=== PATIENT | female | born 1950 | race American Indian/Alaskan Native ===

== ENCOUNTER 2017-05-21 09:06 | Inpatient (IN) | payer MEDICAID, MEDICARE ==
[2017-05-21 09:56] LABS: Basophils % (Auto) 0.3 % (0.0-1.8); Hematocrit 40.8 % (30.3-42.9); Hemoglobin 13.2 gm/dl (10.1-14.3); Mean Corpuscular HGB Conc 32 % (30-34); Mean Corpuscular Hemoglobin 26 pg (28-32); Mean Corpuscular Volume 80 fl (79-97); Platelet Count 322 K/mm3 (140-440); Red Blood Count 5.08 M/mm3 (3.65-5.03); Red Cell Distribution Width 14.3 % (13.2-15.2); White Blood Count 10.8 K/mm3 (4.5-11.0)
[2017-05-21 10:13] LABS: Albumin 3.5 g/dL (3.9-5); Albumin/Globulin Ratio 0.9 %; BUN/Creatinine Ratio 11.87; Bilirubin,Total 0.6 mg/dL (0.1-1.2); Calcium 9.1 mg/dL (8.4-10.2); Chloride 94.1 mmol/L (98-107); Total Protein 7.4 g/dL (6.3-8.2)
[2017-05-21 10:23] LABS: Potassium 2.6 mmol/L (3.6-5.0)
--- NOTE | 2017-05-21 10:30 | Emergency Department Report ---
HPI - General Chief Complaint: Weakness Time Seen by Provider: 05/21/17 09:58 - HPI HPI: This is a 66-year-old Afro-[place] female presents to the emergency department via EMS from home with complaint of a one-week history of generalized weakness. The patient doesn't history of CVA in 2006 and does require a walker to ambulate but says that for the past week she has been unable to do so secondary to this weakness. She has a decreased appetite. She denies any headache, vision change, slurred speech. She also has a past nuchal history of hypertension. She has home health care. 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 No recent travel or sick contacts at home. She is not taken anything for her symptoms prior to presentation. ED Past Medical Hx - Past Medical History Previous Medical History?: Yes Hx Hypertension: Yes Hx CVA: Yes - Surgical History Past Surgical History?: Yes Additional Surgical History: hystorectomy, tibuligation, tumor in stomach removed - Social History Smoking Status: Never Smoker Substance Use Type: None - Medications Home Medications: Home Medications Medication Instructions Recorded Confirmed Last Taken Type Aspirin [Aspirin BABY CHEW TAB] 81 mg PO QDAY 05/21/17 05/21/17 05/20/17 History Lisinopril [Zestril TAB] 2.5 mg PO QDAY 05/21/17 05/21/17 05/20/17 History [place]-3 Fatty Acids/Fish Oil [Fish 1 each PO DAILY 05/21/17 05/21/17 05/20/17 History Oil] Rosuvastatin Calcium [Crestor] 40 mg PO QHS 05/21/17 05/21/17 05/20/17 History amLODIPine [Norvasc] 10 mg PO DAILY 05/21/17 05/21/17 05/20/17 History ED Review of Systems ROS: Stated complaint: GENERAL WEAKNESS Other details as noted in HPI Comment: All other systems reviewed and negative Constitutional: weakness. denies: fever Eyes: denies: eye pain, eye discharge, vision change ENT: denies: ear pain, throat pain Respiratory: denies: cough, shortness of breath, wheezing Cardiovascular: denies: chest pain, palpitations Gastrointestinal: denies: abdominal pain, nausea, diarrhea Genitourinary: denies: urgency, dysuria, discharge Musculoskeletal: denies: back pain, joint swelling, arthralgia Skin: denies: rash, lesions Neurological: weakness. denies: headache, numbness Physical Exam - Physical Exam Vital Signs: Vital Signs 05/21/17 05/21/17 09:18 10:21 Temperature 97.7 F Pulse Rate 80 73 Respiratory 18 16 Rate Blood Pressure 119/77 Blood Pressure 115/73 [Left] O2 Sat by Pulse 99 100 Oximetry Physical Exam: GENERAL: The patient is well-developed well-nourished. HEENT: Normocephalic. Atraumatic. Extraocular motions are intact. Patient has moist mucous membranes. Pupils equal reactive to light bilaterally. No nystagmus. NECK: Supple. Trachea is midline. CHEST/LUNGS: Clear to auscultation. There is no respiratory distress noted. HEART/CARDIOVASCULAR: Regular. There is no tachycardia. There is no gallop rub or murmur. ABDOMEN: Abdomen is soft, nontender. Patient has normal bowel sounds. There is no abdominal distention. SKIN: Skin is warm and dry. NEURO: The patient is awake, alert, and oriented. The patient is cooperative. No sensory deficits. No facial asymmetry. No pronator drift. There is some mild generalized lower extremity weakness. The patient has normal speech. MUSCULOSKELETAL: There is no tenderness or deformity. There is no limitation range of motion. There is no evidence of acute injury. ED Course Vital Signs 05/21/17 05/21/17 09:18 10:21 Temperature 97.7 F Pulse Rate 80 73 Respiratory 18 16 Rate Blood Pressure 119/77 Blood Pressure 115/73 [Left] O2 Sat by Pulse 99 100 Oximetry ED Medical Decision Making - Lab Data Result diagrams: 05/21/17 09:39 05/21/17 09:39 - EKG Data -: EKG Interpreted by [facility] EKG shows normal: sinus rhythm, axis (borderline left axis deviation), intervals (prolonged QT and QTC intervals), QRS complexes, ST-T waves ( nonspecific ST-T waves) Rate: normal - EKG Data When compared to previous EKG there are: previous EKG unavailable Interpretation: other (sinus rhythm, prolonged QT and QTC intervals, borderline left axis deviation) - Radiology Data Radiology results: report reviewed CT of the head without contrast shows evidence of atrophy and microangiopathic ischemic disease. Chronic lacunar infarcts. No acute intracranial process noted. Bilateral renal ultrasound shows medical renal disease. Upper abdominal ultrasound does not show any acute process. - Medical Decision Making 66-year-old female presents with some generalized weakness to the lower extremities. Found to have very elevated transaminases and renal insufficiency/ failure without any previous history. CT of the head does not show any acute process including no bleed, shift, mass or ischemic changes. Ultrasound was done of the kidneys that also shows some medical renal disease but otherwise no acute process. Upper abdominal ultrasound shows a normal examination and no etiology for the transaminitis. Patient does have some generalized lower extremity weakness on examination which is abnormal for this patient. Therefore she will be admitted to the hospital for further evaluation and treatment has been accepted for admission by the hospitalist. - Differential Diagnosis TIA, CVA, hepatitis Critical Care Time: No Critical care attestation.: If time is entered above; I have spent that time in minutes in the direct care of this critically ill patient, excluding procedure time. ED Disposition Clinical Impression: Weakness, Transaminitis, Unable to walk Acute renal failure Qualifiers: Acute renal failure type: unspecified Qualified Code(s): N17.9 - Acute kidney failure, unspecified Disposition: OP ADMIT IP TO THIS HOSP Is pt being admited?: Yes Condition: Stable Time of Disposition: 13:07
[2017-05-21 10:31] LABS: Bacteria,Urine 1+ /HPF (Negative); Bilirubin,Urine NEG (Negative); Blood,Urine LG (Negative); Ketones,Urine NEG (Negative); Leukocyte Esterase,Urine NEG (Negative); Nitrite,Urine NEG (Negative); Urobilinogen,Urine < 2.0 mg/dL (<2.0)
--- NOTE | 2017-05-21 11:13 | Cat Scan Report ---
CT HEAD WITHOUT CONTRAST: HISTORY: Weakness. TECHNIQUE: Sequential CT images without contrast. FINDINGS: Images obtained show bilateral prominence of the sulci and ventricles. There are no abnormal intra- or extra-axial blood or fluid collections. There are no focal masses or evidence of mass effect. The glass white matter differentiation appears within normal limits. Regions of periventricular decreased attenuation are consistent with microangiopathic ischemic disease. Chronic lacunar infarcts are identified in both basal ganglia and right daron. The posterior fossa structures including the fourth ventricle, cerebellum, and brainstem appear normal otherwise. IMPRESSION: Evidence of atrophy and microangiopathic ischemic disease. Chronic lacunar infarcts. No acute intracranial process noted.
[2017-05-21] MEDS ORDERED: K-DUR PO ONE (11:14)
--- NOTE | 2017-05-21 11:25 | Admit Criteria Form ---
Admission Criteria Documentation: RENAL FAILURE, ACUTE Clinical Indications for Admission to Inpatient Care ( Place 'X' for any and all applicable criteria): Admission is indicated for ALL (if I & II) or III of the following [A](2)(3)(4)( 5)(6)(7): [ ]I. Acute renal failure as indicated by ANY ONE of the following: [ ]a) A 3-fold rise in serum creatinine from baseline [ ]b) Serum creatinine greater than 4 mg/dL (354 micromoles/L) with an acute rise greater than 0.5 mg/dL (44.2 micromoles/L) [ ]c) Reduction of more than 75% in estimated glomerular filtration rate from baseline [ ]d) Estimated glomerular filtration rate less than 35 mL/min/1.73m2 (0.59mL/sec/1.73m2)in a child up to 18 years of age [ ]e) Anuria indicated by ALL of the following: [ ]i) Adequate volume status [ ]ii) Cessation of urine output indicated by ANY ONE of the following: [ ]1) Urine output less than 0.3 mL/kg/hr for 24 hours [ ]2) Anuria (urine output less than 0.1 mL/kg/ hr) for 12 hours [X] II. Renal failure cannot be managed in an outpatient setting or observational care setting as indicating by ANY ONE of the following: [ ]a) Altered mental status that is severe or persistent [ ]b) Volume overload or Respiratory distress (eg, clinically significant pulmonary edema) that is severe or persistent [ ]c) Cardiac arrhythmias of immediate concern [ ]d) Hemodynamic instability []e) Clinically significant electrolyte abnormality that requires inpatient care (eg, hyperkalemia with severe ECG findings)[B] [ ]f) Clinically significant metabolic abnormality (eg, acidosis) that is severe or persistent [ ]g) Acute treatment of renal failure (eg, renal replacement therapy) not feasible or appropriate in observational care setting [ ]h) Clinical situation too unstable or uncertain (eg, inadequate urine output, ongoing decline in renal function, etiology unclear) [ ]i) Necessary support and caregiver ability to comply with outpatient treatment cannot be arranged in observation care timeframe (eg, within 24 hours) [X]j) Other significant finding or clinical condition judged not to be within scope of observation care [ ]III.General contraindications and/or Inappropriate clinical situations for Observational Care in patients with Acute Renal Failure, when ANY ONE of the following is required: [ ]a) Prediction of prolongation of LOS based on ANY ONE of the following may be considered as a contraindication for observational care 2, 3, 4, 5, 6, 7, 8 , 9, 10, 11 [ ]i) Age > 65 yrs. [ ]ii) Patient arriving by ambulance [ ]iii) Patient with high acuity [ ]iv) Patient requiring vital sign monitoring [ ]v) Patient on IV medication [ ]b) Systolic blood pressures 180mmHg 3,12 [ ]c) Patient with altered mental status including delirium and other alteration of consciousness, (3) [ ]d) Patient whose discharge disposition will be to a residential home or rehabilitation home should not be managed in Emergency Department Observation Unit. CMS rule requires 3 days hospital stay before such placement.3,13 [ ]e) Patient with failure to thrive due to broad array of etiologies 3, 16,17 [ ]f) Inability to ambulate 3,14 Extended stay beyond goal length of stay may be needed for(13) [ ]a) Continuing uremic complications [ ]b) Care for comorbidities [ ]c) acute renal failure [ ]d) Need for dialysis The original [employer] content created by [employer] has been revised. The portions of the content which have been revised are identified through the use of italic text or in bold, and [facility] has neither reviewed nor approved the modified material. All other unmodified content is copyright [employer]. Please see references footnoted in the original [facility] edition 2016 Admission Criteria Met: Yes
[2017-05-21] MEDS: KCL 10MEQ/100ML 10 MEQ/100 ML BAG IV SCH ×5 (12:04→22:55)
[2017-05-21] MEDS ORDERED: NACL 0.9% 1000 ML 1,000 ML ONE (12:22)
--- NOTE | 2017-05-21 12:41 | Ultrasound Report ---
RIGHT UPPER QUADRANT ULTRASOUND: HISTORY: Right upper quadrant pain, transaminitis. Technique: Transabdominal ultrasound imaging with Doppler interrogation. FINDINGS: The gallbladder is sonolucent with no evidence of stones, polyps or wall thickening. The common duct is normal in caliber. Images of the liver parenchyma, pancreas, and aorta are within normal limits. No perihepatic ascites. IMPRESSION: Unremarkable right upper quadrant ultrasound.
--- NOTE | 2017-05-21 12:42 | Ultrasound Report ---
ULTRASOUND RENAL BILATERAL HISTORY: Acute renal insufficiency. TECHNIQUE: transabdominal ultrasound with color Doppler interrogation. FINDINGS: The right kidney measures 9.9 x 3.6 x 5.4cm. Right renal cortex: 1.1cm. The left kidney measures 9.7 x 4.9 x 5.0cm. Left renal cortex: 1.4cm. The kidneys are normal size, contour and position. There is increased renal parenchymal echotexture bilaterally. Corticomedullary differentiation is preserved. No evidence for cystic disease, mass, nephrolithiasis, hydronephrosis or perinephric fluid. The views of the bladder and the region of the ureters appear normal. IMPRESSION: Renal parenchymal disease.
[2017-05-21] MEDS: HEPARIN SUB-Q SCH ×2 (14:00→21:28)
[2017-05-21] MEDS ORDERED: NON-FORMULARY (Lisinopril [Zestril Tab] 2.5 MG) PO SCH (17:45)
--- NOTE | 2017-05-21 17:55 | History and Physical Report ---
History of Present Illness Date of examination: 05/21/17 Date of admission: 05/21/17 13:07 Chief complaint: Generalized weakness, fatigue History of present illness: Patient is a 66-year-old lady who has a history of cerebrovascular accident in 2006 with hemiparesis and therefore ambulance with a walker. Patient was noted by family members to be progressively getting weaker. Unable to ambulate with her walker for the past 1 week. Denies any fever, chills or vomiting. No chest pain. Denies any orthopnea or paroxysmal nocturnal dyspnea. Symptoms progressively got worse. Patient was brought to the emergency department where CT scan of the brain was unremarkable for any acute event. Potassium was found to be 2.6 with a BUN of 38 and creatinine of 3.2. Liver enzymes where grossly elevated. Admission was therefore requested Past History Past Medical History: hypertension, hyperlipidemia, stroke Past Surgical History: No surgical history Social history: lives with family. denies: smoking, alcohol abuse, prescription drug abuse Family history: no significant family history Medications and Allergies Allergies Allergy/AdvReac Type Severity Reaction Status Date / Time No Known Allergies Allergy Unverified 05/15/14 08:42 Home Medications Medication Instructions Recorded Confirmed Last Taken Type Aspirin [Aspirin BABY CHEW TAB] 81 mg PO QDAY 05/21/17 05/21/17 05/20/17 History Lisinopril [Zestril TAB] 2.5 mg PO QDAY 05/21/17 05/21/17 05/20/17 History [place]-3 Fatty Acids/Fish Oil [Fish 1 each PO DAILY 05/21/17 05/21/17 05/20/17 History Oil] Rosuvastatin Calcium [Crestor] 40 mg PO QHS 05/21/17 05/21/17 05/20/17 History amLODIPine [Norvasc] 10 mg PO DAILY 05/21/17 05/21/17 05/20/17 History Active Meds: Active Medications Amlodipine Besylate (Norvasc) 10 mg PO DAILY [facility] Aspirin (Baby Aspirin) 81 mg PO QDAY [facility] Fish Oil (Fish Oil) 1,000 mg PO DAILY [facility] Heparin Sodium (Porcine) (Heparin) 5,000 unit SUB-Q Q8HR [facility] Dextrose/Sodium Chloride (D5/0.45ns) 1,000 mls @ 125 mls/hr IV DIRECT [facility]INA Potassium Chloride (Kcl 10meq/100ml) 10 meq in 100 mls @ 100 mls/hr IV Q1H [facility] Stop: 05/21/17 20:59 Lisinopril (Zestril) 2.5 mg PO QDAY [facility] Review of systems Constitutional: Fatigue and staffed . Head: NC/ AT Eyes: Denies any visual impairments. No discharge from the eyes Nose: Denies any rhinorrhea or epistaxis Throats: Denies any post nasal drainage. Ears: Denies any hearing deficits Cardiovascular system: Denies any chest pain, shortness of breath, orthopnea, paroxysmal nocturnal dyspnea, or palpitation. Respiratory system: Denies any cough, difficulty breathing, wheezing, pleuritic chest pain, Gastrointestinal system: Denies any abdominal pain, nausea vomiting, hematemesis or melena. Neurological system: Denies any headache, slurred speech, facial droop, lateralizing weakness Genitalia system: Denies any dysuria, urinary frequency or urgency, urethral discharge Skin: No rashes, hyperpigmented spots. Hematological: Denies any cervical tenderness hemorrhages or petechia. Immunological: Denies any multiple septic spots, Lymphatic: Denies any generalized lymphadenopathy. Endocrine: Denies any polyuria, polydipsia, polyphagia. No heat or cold intolerance. Musculoskeletal system: Psych: No visual, tactile, auditory or hallucination Review of Systems Constitutional: no weight gain, no fever, no chills, no sweats Ears, nose, mouth and throat: no ear pain, no ear discharge, no tinnitis, no decreased hearing Cardiovascular: no chest pain, no orthopnea, no palpitations, no rapid/ irregular heart beat Respiratory: no cough, no cough with sputum, no wheezing Gastrointestinal: nausea, vomiting, diarrhea Musculoskeletal: muscle weakness Integumentary: no rash, no pruritis, no redness, no wounds, no jaundice Neurological: no migraines, no tic, no convulsions, no aphasia, no change in speech, no change in mentation, no confusion, no memory loss Psychiatric: change in sleep habits, sleep disturbances, no anxiety Endocrine: no cold intolerance, no heat intolerance, no polyphagia, no excessive thirst, no polydipsia Hematologic/Lymphatic: easy bruising, easy bleeding Allergic/Immunologic: urticaria Exam - Constitutional Vitals: Temp Pulse Resp BP Pulse Ox 97.7 F 74 18 111/60 99 05/21/17 09:18 05/21/17 14:42 05/21/17 14:42 05/21/17 14:42 05/21/17 14:42 General appearance: Present: no acute distress, well-nourished - EENT Eyes: Present: PERRL ENT: hearing intact - Neck Neck: Present: supple, normal ROM - Respiratory Respiratory effort: normal Respiratory: bilateral: CTA - Cardiovascular Heart Sounds: Present: S1 & S2. Absent: rub, click - Extremities Extremities: pulses symmetrical, No edema Peripheral Pulses: within normal limits - Abdominal General gastrointestinal: Present: soft, non-tender Female genitourinary: Present: normal - Integumentary Integumentary: Present: clear, dry - Musculoskeletal Musculoskeletal: gait normal, strength equal bilaterally - Psychiatric Psychiatric: appropriate mood/affect, intact judgment & insight - Neurologic Neurologic: CNII-XII intact, moves all extremities Results - Labs CBC & Chem 7: 05/25/17 04:00 05/25/17 04:00 Assessment and Plan - Acute renal failure, - hypokalemia, - transaminasemia, - hypomagnesemia. Plan IV Hydration for renal failure. Renal US, Nephrology consult Replete potassium and magnesium cautioulsy Physical therapy if additional treatment. DVT Prophylaxis with Lovenox, GI with pepcid Spent 32 mins during this admission process
[2017-05-21] MEDS: ZESTRIL PO SCH (20:05)
[2017-05-21] MEDS: NORVASC PO SCH (20:07)
[2017-05-21] MEDS: D5/0.45NS 1,000 ML IV SCH (20:09)
[2017-05-21] MEDS ORDERED: NON-FORMULARY (Rosuvastatin Calcium [Crestor] 40 MG) PO SCH (22:00)
[2017-05-22] MEDS: D5/0.45NS 1,000 ML IV SCH (05:10)
[2017-05-22 05:39] LABS: Basophils % (Auto) 0.3 % (0.0-1.8); Eosinophils % (Auto) 1.6 % (0.0-4.3); Hematocrit 36.4 % (30.3-42.9); Hemoglobin 11.8 gm/dl (10.1-14.3); Mean Corpuscular HGB Conc 33 % (30-34); Mean Corpuscular Hemoglobin 26 pg (28-32); Mean Corpuscular Volume 80 fl (79-97); Platelet Count 273 K/mm3 (140-440); Red Blood Count 4.54 M/mm3 (3.65-5.03); Red Cell Distribution Width 14.3 % (13.2-15.2); White Blood Count 7.6 K/mm3 (4.5-11.0)
[2017-05-22 06:08] LABS: Albumin 2.8 g/dL (3.9-5); Albumin/Globulin Ratio 0.8 %; BUN/Creatinine Ratio 11.42; Bilirubin,Total 0.3 mg/dL (0.1-1.2); Calcium 8.3 mg/dL (8.4-10.2); Chloride 102.4 mmol/L (98-107); Total Protein 6.2 g/dL (6.3-8.2)
[2017-05-22 06:48] LABS: Potassium 3.6 mmol/L (3.6-5.0)
[2017-05-22] MEDS: NORVASC PO SCH (10:16)
[2017-05-22] MEDS: FISH OIL PO SCH (10:16)
[2017-05-22] MEDS: BABY ASPIRIN PO SCH (10:16)
[2017-05-22] MEDS: ZESTRIL PO SCH (10:16)
--- NOTE | 2017-05-22 15:08 | Progress Note ---
Assessment and Plan Assessment and plan: Patient is a 66-year-old woman with a history of hypertension, dyslipidemia and CVA with hemiparesis 2006; therefore, ambulates with a walker who presented with weakness and inability to ambulate. She was found have a creatinine at 3.2 and severe hypokalemia. There is no baseline in this computer system to compare with subtle know if this is chronic kidney disease acute renal failure, however her creatinine has increased so this is acute renal failure. Renal ultrasound reported as renal parenchymal disease. -Acute renal failure, suspect vasomotor nephropathy: Treat with IV fluids, await nephrology evaluation -Severe hypokalemia, replaced and resolved: BMP a.m. -Hypomagnesemia: Replaced, recheck in a.m. -Elevated troponin: Consulted cardiology, ordered TTE -Ambulation difficulties: Consult PT -DVT prophylaxis: Change subcutaneous Lovenox to heparin -Moderate malnutrition: Consult dietary -Transaminitis, has low blood pressure: repeat and consulted GI History Interval history: Patient seen and examined. Follow up on current diagnosis/weakness. Overnight uneventful. No cp, sob, n/v or severe headaches. Imaging, old records, testing, labs, nursing notes reviewed. Hospitalist Physical - Physical exam Narrative exam: GEN: WDWN, NAD, AWAKE, ALERT, ORIENTATED x 3 HEENT: NCAT, PERRL, EOMI, OP CLEAR NECK: SUPPLE, NO THYROMEGALY, NO JVD, NO LAD CVS: RRR, NORMAL S1S2 LUNGS/CHEST: CTA B, NORMAL CHEST EXPANSION B, GOOD AIR ENTRY B ABD: SOFT, NTND, GBS, NO REBOUND OR GUARDING EXT/SKIN: NO SIGNIFICANT EDEMA OR RASH MSK: FROM X 4 EXTREMITIES NEURO: CN 2-12 GROSSLY INTACT, NO new FOCAL DEFICITS PSY: CALM - Constitutional Vitals: Temp Pulse Resp BP Pulse Ox 97.6 F 76 18 80/50 99 05/22/17 12:00 05/22/17 12:00 05/22/17 12:00 05/22/17 12:00 05/22/17 12:00 General appearance: Present: no acute distress, well-nourished Results - Labs CBC & Chem 7: 05/22/17 05:13 05/22/17 05:13 Labs: Laboratory Last Values WBC 7.6 K/mm3 (4.5-11.0) 05/22/17 05:13 RBC 4.54 M/mm3 (3.65-5.03) 05/22/17 05:13 Hgb 11.8 gm/dl (10.1-14.3) 05/22/17 05:13 Hct 36.4 % (30.3-42.9) 05/22/17 05:13 MCV 80 fl (79-97) 05/22/17 05:13 MCH 26 pg (28-32) L 05/22/17 05:13 MCHC 33 % (30-34) 05/22/17 05:13 RDW 14.3 % (13.2-15.2) 05/22/17 05:13 Plt Count 273 K/mm3 (140-440) 05/22/17 05:13 Lymph % (Auto) 18.8 % (13.4-35.0) 05/22/17 05:13 [place] % (Auto) 11.0 % (0.0-7.3) H 05/22/17 05:13 Eos % (Auto) 1.6 % (0.0-4.3) 05/22/17 05:13 Baso % (Auto) 0.3 % (0.0-1.8) 05/22/17 05:13 Lymph # 1.4 K/mm3 (1.2-5.4) 05/22/17 05:13 [place] # 0.8 K/mm3 (0.0-0.8) 05/22/17 05:13 Eos # 0.1 K/mm3 (0.0-0.4) 05/22/17 05:13 Baso # 0.0 K/mm3 (0.0-0.1) 05/22/17 05:13 Seg Neutrophils % 68.3 % (40.0-70.0) 05/22/17 05:13 Seg Neutrophils # 5.2 K/mm3 (1.8-7.7) 05/22/17 05:13 Sodium 140 mmol/L (137-145) 05/22/17 05:13 Potassium 3.6 mmol/L (3.6-5.0) D 05/22/17 05:13 Chloride 102.4 mmol/L (98-107) 05/22/17 05:13 Carbon Dioxide 23 mmol/L (22-30) 05/22/17 05:13 Anion Gap 18 mmol/L 05/22/17 05:13 BUN 40 mg/dL (7-17) H 05/22/17 05:13 Creatinine 3.5 mg/dL (0.7-1.2) H 05/22/17 05:13 Estimated GFR 16 ml/min 05/22/17 05:13 BUN/Creatinine Ratio 11.42 % 05/22/17 05:13 Glucose 160 mg/dL (65-100) H 05/22/17 05:13 Calcium 8.3 mg/dL (8.4-10.2) L 05/22/17 05:13 Total Bilirubin 0.30 mg/dL (0.1-1.2) 05/22/17 05:13 AST 343 units/L (5-40) H 05/22/17 05:13 ALT 220 units/L (7-56) H 05/22/17 05:13 Alkaline Phosphatase 74 units/L (35-129) 05/22/17 05:13 Troponin T 0.169 ng/mL (0.00-0.029) H* 05/21/17 10:09 Total Protein 6.2 g/dL (6.3-8.2) L 05/22/17 05:13 Albumin 2.8 g/dL (3.9-5) L 05/22/17 05:13 Albumin/Globulin Ratio 0.8 % 05/22/17 05:13 Triglycerides 119 mg/dL (2-149) 05/21/17 10:09 Cholesterol 102 mg/dL (50-199) 05/21/17 10:09 LDL Cholesterol Direct 46 mg/dL (50-130) L 05/21/17 10:09 HDL Cholesterol 33 mg/dL (40-59) L 05/21/17 10:09 Cholesterol/HDL Ratio 3.09 % 05/21/17 10:09 TSH 3.080 mlU/mL (0.270-4.200) 05/21/17 10:09 Urine Color Yellow (Yellow) 05/21/17 10:15 Urine Turbidity Slightly-cloudy (Clear) 05/21/17 10:15 Urine pH 6.0 (5.0-7.0) 05/21/17 10:15 Ur Specific [place] 1.004 (1.003-1.030) 05/21/17 10:15 Urine Protein 30 mg/dl mg/dL (Negative) 05/21/17 10:15 Urine Glucose (UA) Neg mg/dL (Negative) 05/21/17 10:15 Urine Ketones Neg mg/dL (Negative) 05/21/17 10:15 Urine Blood Lg (Negative) 05/21/17 10:15 Urine Nitrite Neg (Negative) 05/21/17 10:15 Urine Bilirubin Neg (Negative) 05/21/17 10:15 Urine Urobilinogen < 2.0 mg/dL (<2.0) 05/21/17 10:15 Ur Leukocyte Esterase Neg (Negative) 05/21/17 10:15 Urine WBC (Auto) 2.0 /HPF (0.0-6.0) 05/21/17 10:15 Urine RBC (Auto) 1.0 /HPF (0.0-6.0) 05/21/17 10:15 Urine Bacteria (Auto) 1+ /HPF (Negative) 05/21/17 10:15 Plasma/Serum Alcohol < 0.01 gm% (0-0.07) 05/21/17 10:09
--- NOTE | 2017-05-22 15:10 | Consultation ---
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 Patient usually uses walker to ambulate, however for the past week she has been unable to do so secondary to her worsening weakness. Patient reports decreased appetite, decreased po and fluid intake lately. In ER patient was found to have significantly elevated LFTs with with AST 655 ALT 298 and also abnormal kidney function with BUN/Cr at 38/3.2mg/dl. Renal consult is requested for management of acute on possible CKD , as renal US showed echogenic kidneys bilaterally. Otherwise no acute hydro/ mass/stones seen. Pt is unaware of any underlying kidney disease in the past, denies fever, chills, nausea, vomiting, diarrhea, abd pain, dysuria, SOB, CP , papitations. Denies recent NSAIDs use or IV contrast exposure. 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 denies: smoking, alcohol abuse, prescription drug abuse Family history: hypertension (cousins), other (mother - heart attack) Medications and Allergies Allergies Allergy/AdvReac Type Severity Reaction Status Date / Time No Known Allergies Allergy Unverified 05/15/14 08:42 Home Medications Medication Instructions Recorded Confirmed Last Taken Type Aspirin [Aspirin BABY CHEW TAB] 81 mg PO QDAY 05/21/17 05/21/17 05/20/17 History Lisinopril [Zestril TAB] 2.5 mg PO QDAY 05/21/17 05/21/17 05/20/17 History [place]-3 Fatty Acids/Fish Oil [Fish 1 each PO DAILY 05/21/17 05/21/17 05/20/17 History Oil] Rosuvastatin Calcium [Crestor] 40 mg PO QHS 05/21/17 05/21/17 05/20/17 History amLODIPine [Norvasc] 10 mg PO DAILY 08/01/0205/21/17 05/20/17 History Active Meds: Active Medications Amlodipine Besylate (Norvasc) 10 mg PO DAILY [facility] Last Admin: 05/22/17 10:16 Dose: 10 mg Aspirin (Baby Aspirin) 81 mg PO QDAY [facility] Last Admin: 05/22/17 10:16 Dose: 81 mg Fish Oil (Fish Oil) 1,000 mg PO DAILY [facility] Last Admin: 05/22/17 10:16 Dose: 1,000 mg Heparin Sodium (Porcine) (Heparin) 5,000 unit SUB-Q Q12HR [facility] Dextrose/Sodium Chloride (D5/0.45ns) 1,000 mls @ 125 mls/hr IV DIRECT [facility] Last Admin: 05/22/17 05:10 Dose: 125 mls/hr Lisinopril (Zestril) 2.5 mg PO QDAY [facility] Last Admin: 05/22/17 10:16 Dose: 2.5 mg Review of Systems All systems: negative Constitutional: anorexia, fatigue, weakness, malaise, poor appetite Cardiovascular: dyspnea on exertion Exam - Vital Signs Vital signs: Vital Signs Temp Pulse Resp BP Pulse Ox 97.7 F 80 18 119/77 99 05/21/17 09:18 05/21/17 09:18 05/21/17 09:18 05/21/17 09:18 05/21/17 09:18 - General Appearance General appearance: appears stated age, fatigue, frail EENT: ATNC, PERRL, mucous membranes moist Neck: Present: neck supple Respiratory: Clear to Ascultation Heart: regular, S1S2 Gastrointestinal: Present: normoactive bowel sounds Integumentary: no rash, other (no edema ) Neurologic: no focal deficit, alert and oriented x3, CN 3-12 intact, hemiplegic , facial droop Psychiatric: mood/affect appropriate, cooperative Results - Lab Results 05/22/17 05:13 05/22/17 05:13 Most recent lab results Calcium 8.3 mg/dL (8.4-10.2) L 05/22/17 05:13 Laboratory Tests 05/21/17 05/21/17 05/21/17 09:39 10:09 10:09 Calcium 9.1 Total Bilirubin 0.60 AST 655 H ALT 298 H Alkaline Phosphatase 90 Troponin T 0.169 H* Total Protein 7.4 Albumin 3.5 L Albumin/Globulin Ratio 0.9 Triglycerides 119 Cholesterol 102 LDL Cholesterol Direct 46 L HDL Cholesterol 33 L Cholesterol/HDL Ratio 3.09 TSH 3.080 Urine Color Urine Turbidity Urine pH Ur Specific [place] Urine Protein Urine Glucose (UA) Urine Ketones Urine Blood Urine Nitrite Urine Bilirubin Urine Urobilinogen Ur Leukocyte Esterase Urine WBC (Auto) Urine RBC (Auto) Urine Bacteria (Auto) Plasma/Serum Alcohol 05/21/17 05/21/17 05/22/17 10:09 10:15 05:13 Calcium 8.3 L Total Bilirubin 0.30 AST 343 H ALT 220 H Alkaline Phosphatase 74 Troponin T Total Protein 6.2 L Albumin 2.8 L Albumin/Globulin Ratio 0.8 Triglycerides Cholesterol LDL Cholesterol Direct HDL Cholesterol Cholesterol/HDL Ratio TSH Urine Color Yellow Urine Turbidity Slightly-cloudy Urine pH 6.0 Ur Specific [place] 1.004 Urine Protein 30 mg/dl Urine Glucose (UA) Neg Urine Ketones Neg Urine Blood Lg Urine Nitrite Neg Urine Bilirubin Neg Urine Urobilinogen < 2.0 Ur Leukocyte Esterase Neg Urine WBC (Auto) 2.0 Urine RBC (Auto) 1.0 Urine Bacteria (Auto) 1+ Plasma/Serum Alcohol < 0.01 Assessment and Plan Assessment: 1. Acute kidney injury likely due to pre-renal azotemia superimposed on CKD. Suspect hypertensive nephrosclerosis as underlying cause of CKD given long standing HTN. Renal US showed b/l echogenic kidneys 2. Failure to thrive, with significantly elevated LFTs to rule out liver malignancy/metastatic disease 3. Hypertension 4. hypokalemia due to decreased po intake Plan/recommendations : 1. given borderline low BP will change IVF to D5NS at 125ml/hr. stop lisinopril. 2. will check UA, urine lytes/Cr to assess FeNA, check urine protein/Cr ratio 3. check PTH, phos 4. K supplementation w/ Kdur 5. Supportive care for TINO, avoid nephrotoxins, NSAIDs, IV contrast. will monitor lytes and renal parameters closely and make further recommendations.
[2017-05-22] MEDS ORDERED: LOVENOX SUB-Q SCH ×2 (22:00)
[2017-05-23] MEDS: D5NS 1,000 ML IV SCH (05:59)
[2017-05-23 06:35] LABS: Bacteria,Urine 3+ /HPF (Negative); Bilirubin,Urine NEG (Negative); Blood,Urine LG (Negative); Ketones,Urine NEG (Negative); Leukocyte Esterase,Urine LG (Negative); Mucus,Urine FEW /HPF; Nitrite,Urine NEG (Negative); Urobilinogen,Urine < 2.0 mg/dL (<2.0)
[2017-05-23 07:39] LABS: Basophils % (Auto) 0.6 % (0.0-1.8); Eosinophils % (Auto) 2.6 % (0.0-4.3); Hematocrit 39.5 % (30.3-42.9); Hemoglobin 12.9 gm/dl (10.1-14.3); Mean Corpuscular HGB Conc 33 % (30-34); Mean Corpuscular Hemoglobin 26 pg (28-32); Mean Corpuscular Volume 80 fl (79-97); Platelet Count 299 K/mm3 (140-440); Red Blood Count 4.92 M/mm3 (3.65-5.03); Red Cell Distribution Width 14.3 % (13.2-15.2); White Blood Count 10.4 K/mm3 (4.5-11.0)
[2017-05-23 07:51] LABS: Albumin/Globulin Ratio 0.9 %; BUN/Creatinine Ratio 9.47; Bilirubin,Total 0.3 mg/dL (0.1-1.2); Calcium 8.5 mg/dL (8.4-10.2); Chloride 105.2 mmol/L (98-107); Magnesium 2.4 mg/dL (1.7-2.3); Potassium 3.3 mmol/L (3.6-5.0); Total Protein 6.5 g/dL (6.3-8.2)
[2017-05-23] MEDS ORDERED: K-DUR PO ONE (09:02)
--- NOTE | 2017-05-23 09:37 | Consultation ---
History of Present Illness Consult date: 05/23/17 Requesting physician: RAMANDEEP GILLILAND Consult reason: abnormal cardiac enzymes History of present illness: Patient is a 66-year-old with no past medical history was admitted to the hospital with progressive weakness and fatigue. Patient was noted to have borderline elevated cardiac enzymes and hence cardiology was consulted. The patient denies any prior cardiac history. She has a history of CVA with residual hemiparesis. Patient complaining of extreme fatigue and tiredness. In the emergency room patient was noted to be hypokalemic and potassium is being replaced. No current chest pain or shortness of breath. Patient has poor insight into her medical problems. 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 denies: smoking, alcohol abuse, prescription drug abuse Family history: CAD, hypertension (cousins), other (mother - heart attack) Medications and Allergies Allergies Allergy/AdvReac Type Severity Reaction Status Date / Time No Known Allergies Allergy Unverified 05/15/14 08:42 Home Medications Medication Instructions Recorded Confirmed Last Taken Type Aspirin [Aspirin BABY CHEW TAB] 81 mg PO QDAY 05/21/17 05/21/17 05/20/17 History Lisinopril [Zestril TAB] 2.5 mg PO QDAY 05/21/17 05/21/17 05/20/17 History [place]-3 Fatty Acids/Fish Oil [Fish 1 each PO DAILY 05/21/17 05/21/17 05/20/17 History Oil] Rosuvastatin Calcium [Crestor] 40 mg PO QHS 05/21/17 05/21/17 05/20/17 History amLODIPine [Norvasc] 10 mg PO DAILY 05/21/17 05/21/17 05/20/17 History Active Meds: Active Medications Amlodipine Besylate (Norvasc) 10 mg PO DAILY [facility] Last Admin: 05/22/17 10:16 Dose: 10 mg Aspirin (Baby Aspirin) 81 mg PO QDAY [facility] Last Admin: 05/22/17 10:16 Dose: 81 mg Fish Oil (Fish Oil) 1,000 mg PO DAILY [facility] Last Admin: 05/22/17 10:16 Dose: 1,000 mg Heparin Sodium (Porcine) (Heparin) 5,000 unit SUB-Q Q12HR [facility] Dextrose/Sodium Chloride (D5ns) 1,000 mls @ 125 mls/hr IV DIRECT [facility] Last Admin: 05/23/17 05:59 Dose: 125 mls/hr Review of Systems All systems: negative (as mentioned in the H&P) Physical Examination Vital Signs Temp Pulse Resp BP Pulse Ox 97.7 F 80 18 119/77 99 05/21/17 09:18 05/21/17 09:18 05/21/17 09:18 05/21/17 09:18 05/21/17 09:18 Narrative exam: GEN: NAD appears frail HEENT: Carotids 2+ NECK: SUPPLE, CVS: RRR, NORMAL S1S2 LUNGS/CHEST: CTA ABD: SOFT, MSK: No significant edema NEURO: Hemiparesis PSY: CALM Results 05/23/17 07:05 05/23/17 07:05 Cardiac Enzymes 05/23/17 Range/Units 07:05 AST 244 H (5-40) units/L CBC 05/23/17 Range/Units 07:05 WBC 10.4 (4.5-11.0) K/mm3 RBC 4.92 (3.65-5.03) M/mm3 Hgb 12.9 (10.1-14.3) gm/dl Hct 39.5 (30.3-42.9) % Plt Count 299 (140-440) K/mm3 Lymph # 1.5 (1.2-5.4) K/mm3 [place] # 1.1 H (0.0-0.8) K/mm3 Eos # 0.3 (0.0-0.4) K/mm3 Baso # 0.1 (0.0-0.1) K/mm3 Comprehensive Metabolic Panel 05/23/17 Range/Units 07:05 Sodium 143 (137-145) mmol/L Potassium 3.3 L (3.6-5.0) mmol/L Chloride 105.2 (98-107) mmol/L Carbon Dioxide 24 (22-30) mmol/L BUN 36 H (7-17) mg/dL Creatinine 3.8 H (0.7-1.2) mg/dL Glucose 138 H (65-100) mg/dL Calcium 8.5 (8.4-10.2) mg/dL AST 244 H (5-40) units/L ALT 210 H (7-56) units/L Alkaline Phosphatase 93 (35-129) units/L Total Protein 6.5 (6.3-8.2) g/dL Albumin 3.0 L (3.9-5) g/dL EKG interpretations - Telemetry EKG Rhythm: Sinus Rhythm (nonspecific ST-T wave changes) Assessment and Plan Assessment: 1. Borderline elevated cardiac enzymes with no active symptoms or EKG changes suggestive for an acute OR. Borderline troponin elevation likely the result of renal failure 2. Acute kidney injury nephrology has been consulted 2. Failure to thrive, with significantly elevated LFTs to rule out liver malignancy/metastatic disease 3. Hypertension 4. hypokalemia due to decreased po intake Plan/recommendations : 1. 2-D echo has already been ordered 2. Aggressive IV hydration and monitor renal function 3. Toradol blood pressure medicines from 4. Potassium replacement as is being done 5. All nephrotoxic agents have been held 6. His clinical situation improves may consider stress test prior to DC
--- NOTE | 2017-05-23 10:56 | Progress Note ---
Assessment and Plan - Patient Problems (1) Acute kidney injury superimposed on CKD Current Visit: Yes Status: Acute Plan to address problem: Baseline kidney function unknown. Continue gentle volume repletion and follow- up electrolytes and renal function. (2) Hypertensive chronic kidney disease with stage 1 through stage 4 chronic kidney disease, or unspecified chronic kidney disease Current Visit: Yes Status: Acute Plan to address problem: Follow-up blood pressure on current medications (3) Transaminitis Current Visit: Yes Status: Acute Plan to address problem: Follow-up liver function tests (4) History of cerebrovascular accident Current Visit: Yes Status: Acute Plan to address problem: Continue medications (5) Hypokalemia Current Visit: Yes Status: Acute Plan to address problem: Supplement potassium and follow-up level Subjective Date of service: 05/23/17 Principal diagnosis: acute kidney injury Interval history: Patient seen lying in bed. She has no complaints. She denies pain, shortness of breath, nausea or vomiting Objective - Exam Narrative Exam: L elderly -Japanese female lying in bed in no acute distress HEENT [normocephalic atraumatic, pupils equal reactive to light, pink, clear oropharynx] Neck [supple, no thyromegaly no jugular venous distention] CVS [S1-S2 regular rate rhythm without murmur, rub or gallop] Chest [clear to auscultation] Abdomen [soft nondistended nontender no organomegaly no bruit bowel sounds present] Extremities [no edema no cyanosis or clubbing] Genitourinary [deferred] Neuro [awake, alert oriented x3 no gross deficit] - Vital Signs Vital signs: Vital Signs - 12hr 05/23/17 05/23/17 05/23/17 00:12 05:50 07:10 Temperature 97.8 F 98.9 F 98.4 F Pulse Rate 74 64 65 Respiratory 20 18 18 Rate Blood Pressure 84/46 100/64 101/58 O2 Sat by Pulse 97 99 97 Oximetry - Lab 05/23/17 07:05 05/23/17 07:05 Most recent lab results Calcium 8.5 mg/dL (8.4-10.2) 05/23/17 07:05 Phosphorus 3.20 mg/dL (2.5-4.5) 05/23/17 07:05 Magnesium 2.40 mg/dL (1.7-2.3) H 05/23/17 07:05
--- NOTE | 2017-05-23 13:14 | Progress Note ---
Assessment and Plan Assessment and plan: Patient is a 66-year-old woman with a history of hypertension, dyslipidemia and CVA with hemiparesis 2006; therefore, ambulates with a walker who presented with weakness and inability to ambulate. She was found have a creatinine at 3.2 and severe hypokalemia. There is no renal function baseline in this computer system to compare don't know if this is chronic kidney disease or acute renal failure, however her creatinine has increased so this is acute renal failure. Renal ultrasound reported as renal parenchymal disease. -Acute renal failure, suspect vasomotor nephropathy: Treat with IV fluids, await nephrology evaluation -Severe hypokalemia, replaced and resolved: BMP a.m. -Hypomagnesemia: Replaced, recheck in a.m. -Elevated troponin: Consulted cardiology, ordered TTE -Ambulation difficulties: Consult PT -DVT prophylaxis: Change subcutaneous Lovenox to heparin -Moderate malnutrition: Consult dietary -Transaminitis, has low blood pressure: repeat and consulted GI 05/23/17: d/w daughter over the phone in patient's room and answered all her questions. Cr still increasing, lapping machine tender to see, hypokalemia, replaced History Interval history: Patient seen and examined. Follow up on current diagnosis/weakness. Overnight uneventful. No cp, sob, n/v or severe headaches. Imaging, old records, testing, labs, nursing notes reviewed. Hospitalist Physical - Physical exam Narrative exam: GEN: WDWN, NAD, AWAKE, ALERT, ORIENTATED x 3 HEENT: NCAT, PERRL, EOMI, OP CLEAR NECK: SUPPLE, NO THYROMEGALY, NO JVD, NO LAD CVS: RRR, NORMAL S1S2 LUNGS/CHEST: CTA B, NORMAL CHEST EXPANSION B, GOOD AIR ENTRY B ABD: SOFT, NTND, GBS, NO REBOUND OR GUARDING EXT/SKIN: NO SIGNIFICANT EDEMA OR RASH MSK: FROM X 4 EXTREMITIES NEURO: CN 2-12 GROSSLY INTACT, NO new FOCAL DEFICITS PSY: CALM - Constitutional Vitals: Temp Pulse Resp BP Pulse Ox 97.5 F L 68 20 119/64 99 05/23/17 11:02 05/23/17 11:02 05/23/17 11:02 05/23/17 11:02 05/23/17 11:02 General appearance: Present: no acute distress, well-nourished Results - Labs CBC & Chem 7: 05/23/17 07:05 05/23/17 07:05 Labs: Laboratory Last Values WBC 10.4 K/mm3 (4.5-11.0) 05/23/17 07:05 RBC 4.92 M/mm3 (3.65-5.03) 05/23/17 07:05 Hgb 12.9 gm/dl (10.1-14.3) 05/23/17 07:05 Hct 39.5 % (30.3-42.9) 05/23/17 07:05 MCV 80 fl (79-97) 05/23/17 07:05 MCH 26 pg (28-32) L 05/23/17 07:05 MCHC 33 % (30-34) 05/23/17 07:05 RDW 14.3 % (13.2-15.2) 05/23/17 07:05 Plt Count 299 K/mm3 (140-440) 05/23/17 07:05 Lymph % (Auto) 14.6 % (13.4-35.0) 05/23/17 07:05 [place] % (Auto) 10.8 % (0.0-7.3) H 05/23/17 07:05 Eos % (Auto) 2.6 % (0.0-4.3) 05/23/17 07:05 Baso % (Auto) 0.6 % (0.0-1.8) 05/23/17 07:05 Lymph # 1.5 K/mm3 (1.2-5.4) 05/23/17 07:05 [place] # 1.1 K/mm3 (0.0-0.8) H 05/23/17 07:05 Eos # 0.3 K/mm3 (0.0-0.4) 05/23/17 07:05 Baso # 0.1 K/mm3 (0.0-0.1) 05/23/17 07:05 Seg Neutrophils % 71.4 % (40.0-70.0) H 05/23/17 07:05 Seg Neutrophils # 7.4 K/mm3 (1.8-7.7) 05/23/17 07:05 Sodium 143 mmol/L (137-145) 05/23/17 07:05 Potassium 3.3 mmol/L (3.6-5.0) L 05/23/17 07:05 Chloride 105.2 mmol/L (98-107) 05/23/17 07:05 Carbon Dioxide 24 mmol/L (22-30) 05/23/17 07:05 Anion Gap 17 mmol/L 05/23/17 07:05 BUN 36 mg/dL (7-17) H 05/23/17 07:05 Creatinine 3.8 mg/dL (0.7-1.2) H 05/23/17 07:05 Estimated GFR 14 ml/min 05/23/17 07:05 BUN/Creatinine Ratio 9.47 % 05/23/17 07:05 Glucose 138 mg/dL (65-100) H 05/23/17 07:05 Calcium 8.5 mg/dL (8.4-10.2) 05/23/17 07:05 Phosphorus 3.20 mg/dL (2.5-4.5) 05/23/17 07:05 Magnesium 2.40 mg/dL (1.7-2.3) H 05/23/17 07:05 Total Bilirubin 0.30 mg/dL (0.1-1.2) 05/23/17 07:05 AST 244 units/L (5-40) H 05/23/17 07:05 ALT 210 units/L (7-56) H 05/23/17 07:05 Alkaline Phosphatase 93 units/L (35-129) 05/23/17 07:05 Troponin T 0.169 ng/mL (0.00-0.029) H* 05/21/17 10:09 Total Protein 6.5 g/dL (6.3-8.2) 05/23/17 07:05 Albumin 3.0 g/dL (3.9-5) L 05/23/17 07:05 Albumin/Globulin Ratio 0.9 % 05/23/17 07:05 Triglycerides 119 mg/dL (2-149) 05/21/17 10:09 Cholesterol 102 mg/dL (50-199) 05/21/17 10:09 LDL Cholesterol Direct 46 mg/dL (50-130) L 05/21/17 10:09 HDL Cholesterol 33 mg/dL (40-59) L 05/21/17 10:09 Cholesterol/HDL Ratio 3.09 % 05/21/17 10:09 TSH 3.080 mlU/mL (0.270-4.200) 05/21/17 10:09 Urine Color Yellow (Yellow) 05/22/17 Unknown Urine Turbidity Cloudy (Clear) 05/22/17 Unknown Urine pH 5.0 (5.0-7.0) 05/22/17 Unknown Ur Specific [place] 1.005 (1.003-1.030) 05/22/17 Unknown Urine Protein 30 mg/dl mg/dL (Negative) 05/22/17 Unknown Urine Glucose (UA) Neg mg/dL (Negative) 05/22/17 Unknown Urine Ketones Neg mg/dL (Negative) 05/22/17 Unknown Urine Blood Lg (Negative) 05/22/17 Unknown Urine Nitrite Neg (Negative) 05/22/17 Unknown Urine Bilirubin Neg (Negative) 05/22/17 Unknown Urine Urobilinogen < 2.0 mg/dL (<2.0) 05/22/17 Unknown Ur Leukocyte Esterase Lg (Negative) 05/22/17 Unknown Urine WBC (Auto) 151.0 /HPF (0.0-6.0) H 05/22/17 Unknown Urine RBC (Auto) 56.0 /HPF (0.0-6.0) 05/22/17 Unknown U Epithel Cells (Auto) 1.0 /HPF (0-13.0) 05/22/17 Unknown Urine Bacteria (Auto) 3+ /HPF (Negative) 05/22/17 Unknown Urine Mucus Few /HPF 05/22/17 Unknown Plasma/Serum Alcohol < 0.01 gm% (0-0.07) 05/21/17 10:09
[2017-05-23] MEDS: BABY ASPIRIN PO SCH (14:30)
[2017-05-23] MEDS: FISH OIL PO SCH (14:30)
[2017-05-23] MEDS: NORVASC PO SCH (14:30)
[2017-05-23] MEDS ORDERED: MIRALAX 3350 PO ONE (18:00)
[2017-05-23] MEDS: HEPARIN SUB-Q SCH ×2 (18:20→21:09)
[2017-05-24 07:13] LABS: Albumin 2.5 g/dL (3.9-5); Albumin/Globulin Ratio 0.6 %; BUN/Creatinine Ratio 8.46; Bilirubin,Total 0.3 mg/dL (0.1-1.2); Calcium 8.2 mg/dL (8.4-10.2); Chloride 105.3 mmol/L (98-107); Magnesium 2.1 mg/dL (1.7-2.3); Total Protein 6.7 g/dL (6.3-8.2)
[2017-05-24 07:15] LABS: Alanine Aminotransferase 188 units/L (7-56); Albumin 2.7 g/dL (3.9-5); Albumin/Globulin Ratio 0.7 %; Alkaline Phosphatase 78 units/L (35-129); Total Protein 6.4 g/dL (6.3-8.2)
[2017-05-24 07:37] LABS: Bilirubin,Direct < 0.2 mg/dL (0-0.2)
--- NOTE | 2017-05-24 10:25 | Gastroenterology Progress Note ---
Assessment and Plan Liver: resolving increase LFT's - suspect mild shock liver - continue to follow labs - no need liver bx's or other intervention - call if situation changes Subjective Date of service: 05/24/17 Principal diagnosis: acute kidney injury Interval history: - pt without GI complaints Objective - Constitutional Vitals: Temp Pulse Resp BP Pulse Ox 98.2 F 62 20 115/65 99 05/24/17 08:40 05/24/17 09:57 05/24/17 08:40 05/24/17 08:40 05/24/17 08:40 General appearance: no acute distress - Respiratory Respiratory: bilateral: CTA - Cardiovascular Rhythm: regular Heart Sounds: Present: S1 & S2 - Gastrointestinal General gastrointestinal: Present: soft, non-tender - Labs CBC & Chem 7: 05/23/17 07:05 05/24/17 05:46 Labs: Laboratory Results - last 24 hr 05/24/17 05/24/17 05/24/17 05:46 05:46 05:46 Sodium 142 Potassium 4.0 D Chloride 105.3 Carbon Dioxide 22 Anion Gap 19 BUN 33 H Creatinine 3.9 H Estimated GFR 14 BUN/Creatinine Ratio 8.46 Glucose 134 H Calcium 8.2 L Magnesium 2.10 Ferritin 167.6 Total Bilirubin 0.30 0.20 Direct Bilirubin < 0.2 Indirect Bilirubin 0.0 AST 213 H 201 H ALT 191 H 188 H Alkaline Phosphatase 81 78 Total Protein 6.7 6.4 Albumin 2.5 L 2.7 L Albumin/Globulin Ratio 0.6 0.7
--- NOTE | 2017-05-24 10:44 | Progress Note ---
Assessment and Plan Assessment: 1. Borderline elevated cardiac enzymes with no active symptoms or EKG changes suggestive for an acute NC. Borderline troponin elevation likely the result of renal failure 2. Acute kidney injury nephrology onboard 2. Failure to thrive, with significantly elevated LFTs to rule out liver malignancy/metastatic disease 3. Hypertension 4. hypokalemia improved Plan/recommendations : 1. 2-D echo with normal LV motion and no significant wall motion abnormality 2. Continue aggressive IV hydration and monitor renal function 3. Once clinical situation improves may consider stress test prior to DC Subjective Date of service: 05/24/17 Principal diagnosis: acute kidney injury Interval history: No events overnight Objective Vital Signs Temp Pulse Resp BP Pulse Ox 05/24/17 09:57 62 05/24/17 08:40 98.2 F 71 20 115/65 99 05/24/17 04:00 98.8 F 64 18 97/51 96 05/24/17 00:00 98.7 F 65 20 100/54 95 05/23/17 22:00 60 05/23/17 20:00 98.5 F 74 20 128/72 96 05/23/17 16:14 97.8 F 74 20 136/70 99 05/23/17 11:02 97.5 F L 68 20 119/64 99 - Physical Examination Narrative exam: GEN: NAD appears frail HEENT: Carotids 2+ NECK: SUPPLE, CVS: RRR, NORMAL S1S2 LUNGS/CHEST: CTA ABD: SOFT, MSK: No significant edema NEURO: Hemiparesis PSY: CALM Neck: Positive: neck supple - Labs and Meds Cardiac Enzymes 05/24/17 05/24/17 Range/Units 05:46 05:46 AST 213 H 201 H (5-40) units/L Comprehensive Metabolic Panel 05/24/17 05/24/17 Range/Units 05:46 05:46 Sodium 142 (137-145) mmol/L Potassium 4.0 D (3.6-5.0) mmol/L Chloride 105.3 (98-107) mmol/L Carbon Dioxide 22 (22-30) mmol/L BUN 33 H (7-17) mg/dL Creatinine 3.9 H (0.7-1.2) mg/dL Glucose 134 H (65-100) mg/dL Calcium 8.2 L (8.4-10.2) mg/dL Direct Bilirubin < 0.2 (0-0.2) mg/dL Indirect Bilirubin 0.0 mg/dL AST 213 H 201 H (5-40) units/L ALT 191 H 188 H (7-56) units/L Alkaline Phosphatase 81 78 (35-129) units/L Total Protein 6.7 6.4 (6.3-8.2) g/dL Albumin 2.5 L 2.7 L (3.9-5) g/dL
--- NOTE | 2017-05-24 11:15 | Progress Note ---
Assessment and Plan Assessment and plan: Patient is a 66-year-old woman with a history of hypertension, dyslipidemia and CVA with hemiparesis 2006; therefore, ambulates with a walker who presented with weakness and inability to ambulate. She was found have a creatinine at 3.2 and severe hypokalemia. There is no renal function baseline in this computer system to compare don't know if this is chronic kidney disease or acute renal failure, however her creatinine has increased so this is acute renal failure. Renal ultrasound reported as renal parenchymal disease. -Acute renal failure, suspect vasomotor nephropathy: Treat with IV fluids, await nephrology evaluation -Hypovolemic shock, present on admission: Successfully treated with IV fluids -Severe hypokalemia, replaced and resolved: BMP a.m. -Hypomagnesemia: Replaced, recheck in a.m. -Elevated troponin: Consulted cardiology, ordered TTE -Ambulation difficulties: Consult PT -DVT prophylaxis: Change subcutaneous Lovenox to heparin -Moderate malnutrition: Consult dietary -Transaminitis, has low blood pressure: GI evaluated and agrees most likely shock liver, improving 05/23/17: d/w daughter over the phone in patient's room and answered all her questions. Cr still increasing, poly area supervisor to see, hypokalemia, replaced 05/24/17: Doing better, daughter, Yaa was suppose to meet me between 8a-9am, no show. Cr still increasing but leveling off some, repeat in am. TTE reported as estimated EF 55-60%, abnormal left ventricular diastolic filling consistent with impaired relaxation, right ventricular systolic function is normal. Stress test in a.m. History Interval history: Patient seen and examined. Follow up on current diagnosis/weakness. Overnight uneventful. No cp, sob, n/v or severe headaches. Imaging, old records, testing, labs, nursing notes reviewed. Hospitalist Physical - Physical exam Narrative exam: GEN: WDWN, NAD, AWAKE, ALERT, ORIENTATED x 3 HEENT: NCAT, PERRL, EOMI, OP CLEAR NECK: SUPPLE, NO THYROMEGALY, NO JVD, NO LAD CVS: RRR, NORMAL S1S2 LUNGS/CHEST: CTA B, NORMAL CHEST EXPANSION B, GOOD AIR ENTRY B ABD: SOFT, NTND, GBS, NO REBOUND OR GUARDING EXT/SKIN: NO SIGNIFICANT EDEMA OR RASH MSK: FROM X 4 EXTREMITIES NEURO: CN 2-12 GROSSLY INTACT, NO new FOCAL DEFICITS PSY: CALM - Constitutional Vitals: Temp Pulse Resp BP Pulse Ox 98.2 F 62 20 115/65 99 05/24/17 08:40 05/24/17 09:57 05/24/17 08:40 05/24/17 08:40 05/24/17 08:40 General appearance: Present: no acute distress, well-nourished Results - Labs CBC & Chem 7: 05/23/17 07:05 05/24/17 05:46 Labs: Laboratory Last Values WBC 10.4 K/mm3 (4.5-11.0) 05/23/17 07:05 RBC 4.92 M/mm3 (3.65-5.03) 05/23/17 07:05 Hgb 12.9 gm/dl (10.1-14.3) 05/23/17 07:05 Hct 39.5 % (30.3-42.9) 05/23/17 07:05 MCV 80 fl (79-97) 05/23/17 07:05 MCH 26 pg (28-32) L 05/23/17 07:05 MCHC 33 % (30-34) 05/23/17 07:05 RDW 14.3 % (13.2-15.2) 05/23/17 07:05 Plt Count 299 K/mm3 (140-440) 05/23/17 07:05 Lymph % (Auto) 14.6 % (13.4-35.0) 05/23/17 07:05 [place] % (Auto) 10.8 % (0.0-7.3) H 05/23/17 07:05 Eos % (Auto) 2.6 % (0.0-4.3) 05/23/17 07:05 Baso % (Auto) 0.6 % (0.0-1.8) 05/23/17 07:05 Lymph # 1.5 K/mm3 (1.2-5.4) 05/23/17 07:05 [place] # 1.1 K/mm3 (0.0-0.8) H 05/23/17 07:05 Eos # 0.3 K/mm3 (0.0-0.4) 05/23/17 07:05 Baso # 0.1 K/mm3 (0.0-0.1) 05/23/17 07:05 Seg Neutrophils % 71.4 % (40.0-70.0) H 05/23/17 07:05 Seg Neutrophils # 7.4 K/mm3 (1.8-7.7) 05/23/17 07:05 Sodium 142 mmol/L (137-145) 05/24/17 05:46 Potassium 4.0 mmol/L (3.6-5.0) D 05/24/17 05:46 Chloride 105.3 mmol/L (98-107) 05/24/17 05:46 Carbon Dioxide 22 mmol/L (22-30) 05/24/17 05:46 Anion Gap 19 mmol/L 05/24/17 05:46 BUN 33 mg/dL (7-17) H 05/24/17 05:46 Creatinine 3.9 mg/dL (0.7-1.2) H 05/24/17 05:46 Estimated GFR 14 ml/min 05/24/17 05:46 BUN/Creatinine Ratio 8.46 % 05/24/17 05:46 Glucose 134 mg/dL (65-100) H 05/24/17 05:46 Calcium 8.2 mg/dL (8.4-10.2) L 05/24/17 05:46 Phosphorus 3.20 mg/dL (2.5-4.5) 05/23/17 07:05 Magnesium 2.10 mg/dL (1.7-2.3) 05/24/17 05:46 Ferritin 167.6 ng/mL (13.0-400.0) 05/24/17 05:46 Total Bilirubin 0.20 mg/dL (0.1-1.2) 05/24/17 05:46 Direct Bilirubin < 0.2 mg/dL (0-0.2) 05/24/17 05:46 Indirect Bilirubin 0.0 mg/dL 05/24/17 05:46 AST 213 units/L (5-40) H 05/24/17 05:46 ALT 191 units/L (7-56) H 05/24/17 05:46 Alkaline Phosphatase 78 units/L (35-129) 05/24/17 05:46 Troponin T 0.169 ng/mL (0.00-0.029) H* 05/21/17 10:09 Total Protein 6.4 g/dL (6.3-8.2) 05/24/17 05:46 Albumin 2.7 g/dL (3.9-5) L 05/24/17 05:46 Albumin/Globulin Ratio 0.7 % 05/24/17 05:46 Triglycerides 119 mg/dL (2-149) 05/21/17 10:09 Cholesterol 102 mg/dL (50-199) 05/21/17 10:09 LDL Cholesterol Direct 46 mg/dL (50-130) L 05/21/17 10:09 HDL Cholesterol 33 mg/dL (40-59) L 05/21/17 10:09 Cholesterol/HDL Ratio 3.09 % 05/21/17 10:09 TSH 3.080 mlU/mL (0.270-4.200) 05/21/17 10:09 Urine Color Yellow (Yellow) 05/22/17 Unknown Urine Turbidity Cloudy (Clear) 05/22/17 Unknown Urine pH 5.0 (5.0-7.0) 05/22/17 Unknown Ur Specific [place] 1.005 (1.003-1.030) 05/22/17 Unknown Urine Protein 30 mg/dl mg/dL (Negative) 05/22/17 Unknown Urine Glucose (UA) Neg mg/dL (Negative) 05/22/17 Unknown Urine Ketones Neg mg/dL (Negative) 05/22/17 Unknown Urine Blood Lg (Negative) 05/22/17 Unknown Urine Nitrite Neg (Negative) 05/22/17 Unknown Urine Bilirubin Neg (Negative) 05/22/17 Unknown Urine Urobilinogen < 2.0 mg/dL (<2.0) 05/22/17 Unknown Ur Leukocyte Esterase Lg (Negative) 05/22/17 Unknown Urine WBC (Auto) 151.0 /HPF (0.0-6.0) H 05/22/17 Unknown Urine RBC (Auto) 56.0 /HPF (0.0-6.0) 05/22/17 Unknown U Epithel Cells (Auto) 1.0 /HPF (0-13.0) 05/22/17 Unknown Urine Bacteria (Auto) 3+ /HPF (Negative) 05/22/17 Unknown Urine Mucus Few /HPF 05/22/17 Unknown Plasma/Serum Alcohol < 0.01 gm% (0-0.07) 05/21/17 10:09
[2017-05-24] MEDS: FISH OIL PO SCH (11:45)
[2017-05-24] MEDS: NORVASC PO SCH (11:45)
[2017-05-24] MEDS: BABY ASPIRIN PO SCH (11:45)
[2017-05-24] MEDS ORDERED: DULCOLAX PR ONE (13:00)
--- NOTE | 2017-05-24 16:27 | Progress Note ---
Assessment and Plan - Patient Problems (1) Acute kidney injury superimposed on CKD Current Visit: Yes Status: Acute Plan to address problem: Baseline kidney function unknown. Continue gentle volume repletion and follow- up electrolytes and renal function. (2) Hypertensive chronic kidney disease with stage 1 through stage 4 chronic kidney disease, or unspecified chronic kidney disease Current Visit: Yes Status: Acute Plan to address problem: Follow-up blood pressure on current medications (3) Transaminitis Current Visit: Yes Status: Acute Plan to address problem: Follow-up liver function tests (4) History of cerebrovascular accident Current Visit: Yes Status: Acute Plan to address problem: Continue medications (5) Hypokalemia Current Visit: Yes Status: Acute Plan to address problem: Potassium is replete Subjective Date of service: 05/24/17 Principal diagnosis: acute kidney injury Interval history: Patient seen lying in bed. She has no complaints. She denies pain, shortness of breath, nausea or vomiting Objective - Exam Narrative Exam: L elderly -Swedish female lying in bed in no acute distress HEENT normocephalic atraumatic, pupils equal reactive to light, pink, clear oropharynx Neck supple, no thyromegaly no jugular venous distention CVS S1-S2 regular rate rhythm without murmur, rub or gallop Chest clear to auscultation Abdomen soft nondistended nontender no organomegaly no bruit bowel sounds present Extremities no edema no cyanosis or clubbing Neuro awake, alert oriented x3 no gross deficit - Vital Signs Vital signs: Vital Signs - 12hr 05/24/17 05/24/17 05/24/17 08:40 09:57 13:21 Temperature 98.2 F 98.2 F Pulse Rate 71 62 82 Respiratory 20 20 Rate Blood Pressure 115/65 129/62 O2 Sat by Pulse 99 98 Oximetry - Lab 05/23/17 07:05 05/24/17 05:46 Most recent lab results Calcium 8.2 mg/dL (8.4-10.2) L 05/24/17 05:46 Phosphorus 3.20 mg/dL (2.5-4.5) 05/23/17 07:05 Magnesium 2.10 mg/dL (1.7-2.3) 05/24/17 05:46
[2017-05-24] MEDS: HEPARIN SUB-Q SCH ×2 (17:04→22:19)
[2017-05-25 06:06] LABS: Hematocrit 34.6 % (30.3-42.9); Hemoglobin 11.6 gm/dl (10.1-14.3); Mean Corpuscular HGB Conc 33 % (30-34); Mean Corpuscular Hemoglobin 27 pg (28-32); Mean Corpuscular Volume 80 fl (79-97); Platelet Count 292 K/mm3 (140-440); Red Blood Count 4.34 M/mm3 (3.65-5.03); Red Cell Distribution Width 14.5 % (13.2-15.2); White Blood Count 9.3 K/mm3 (4.5-11.0)
[2017-05-25 06:18] LABS: BUN/Creatinine Ratio 7.8; Calcium 8.5 mg/dL (8.4-10.2); Chloride 102.6 mmol/L (98-107); Potassium 3.5 mmol/L (3.6-5.0)
--- NOTE | 2017-05-25 07:26 | Consultation ---
INDICATION: Increased liver function tests. HISTORY OF PRESENT ILLNESS: The patient is a 66-year-old black female with history of CVA with hemiparesis who ambulates with a walker. The patient presented with general weakness and dizziness. She subsequently came to the Emergency Room. In the Emergency Room, she was noted to have acute renal failure and increased liver function tests. She subsequently was admitted and GI consulted. The patient reports no history of liver problems in the past. She denies increased liver function tests. The patient denies any family history of liver disease. She denies any recent diet or medication changes. She denies any other specific problems or complaints. The patient is on Crestor, but has been on that medication for a while. PAST MEDICAL HISTORY: 1. Hypertension. 2. High cholesterol. 3. Status post CVA. MEDICATIONS: See chart. ALLERGIES: No known drug allergies. SOCIAL HISTORY: Denies alcohol, tobacco or drug abuse. FAMILY HISTORY: Negative for colon cancer. REVIEW OF SYSTEMS: GENERAL: Reports mild weakness. HEENT: No visual complaints or tinnitus. PULMONARY: No shortness of breath. No cough. No chest pain. GASTROINTESTINAL: Denies complaints. All points of 13-point review of systems otherwise negative. PHYSICAL EXAMINATION: VITAL SIGNS: Temperature of 97.5, pulse 68, respirations 20, blood pressure 119/64. GENERAL: Fairly nourished black female, in no acute distress. HEENT: Pupils equal, round, reactive to light and accommodation. Extraocular movements intact. PULMONARY: Clear to auscultation bilaterally. CARDIOVASCULAR: Regular rhythm. Normal S1, S2. ABDOMEN: Positive bowel sounds, soft. SKIN: No obvious rashes. LABORATORY DATA: Pertinent for white count of 10.4, hemoglobin and hematocrit of 12.9 and 39.5, platelet count of 299. Chem-7 pertinent for BUN and creatinine of 36 and 3.8, total bilirubin of 0.3, AST, ALT of 244 and 210 initially presented with 655 and 298 respectively, alkaline phosphatase 93. Coags within normal limits. Right upper quadrant ultrasound benign. ASSESSMENT AND PLAN: A 66-year-old female who was admitted for weakness, now noted to have increased liver function tests, which are now improving. My suspicion is that the patient may have had hypotensive episode or some kind of mild shock liver. She is otherwise stable and her liver numbers are improving. Management as noted below. PLAN: 1. Acute hepatitis panel, other liver labs. 2. Follow LFTs. 3. No need for liver biopsy at this time. 4. No need for medication changes at this time. 5. We will follow further recommendation based on progress. JOB# [id number] CAB/NTS
[2017-05-25] MEDS ORDERED: K-DUR PO ONE ×2 (08:00→09:00)
[2017-05-25] MEDS ORDERED: LEXISCAN IV ONE ×2 (08:19→08:23)
[2017-05-25] MEDS: FISH OIL PO SCH (10:30)
[2017-05-25] MEDS: BABY ASPIRIN PO SCH (10:30)
[2017-05-25] MEDS: HEPARIN SUB-Q SCH ×2 (10:31→21:28)
[2017-05-25] MEDS: NORVASC PO SCH (10:31)
[2017-05-25] MEDS: ROCEPHIN/NS 1 GM/50 ML 1 GM/50 ML BAG IV SCH (10:35)
--- NOTE | 2017-05-25 11:55 | Progress Note ---
Assessment and Plan Assessment: 1. Borderline elevated cardiac enzymes with no active symptoms or EKG changes suggestive for an acute RI. Normal stress test this admission Normal LVEF 2. Acute kidney injury - nephrology onboard 2. Failure to thrive, with significantly elevated LFTs - Rule out liver malignancy/metastatic disease (patient on on crestor 40 as outpatient) 3. Hypertension 4. hypokalemia - improved Plan/recommendations : 1. No further cardiac work-up is needed Subjective Date of service: 05/25/17 Principal diagnosis: acute kidney injury Interval history: Patient is doing well. She denies chest pain or shortness of breath Objective Vital Signs Temp Pulse Pulse Resp Resp BP Pulse Ox 05/25/17 08:43 83 92/53 05/25/17 08:42 83 89/52 05/25/17 08:41 85 96/52 05/25/17 08:40 88 88/50 05/25/17 08:39 88 109/61 05/25/17 08:27 60 115/60 05/25/17 04:00 98.7 F 70 18 106/57 97 05/25/17 00:00 98.0 F 70 18 111/60 97 05/24/17 23:28 70 17 05/24/17 22:00 68 05/24/17 20:51 17 05/24/17 20:00 98.5 F 69 18 105/57 96 05/24/17 15:16 98.4 F 73 20 116/58 97 05/24/17 13:21 98.2 F 82 20 129/62 98 - Physical Examination Neck: Positive: neck supple Cardiac: Positive: Reg Rate and Rhythm Lungs: Positive: Normal Exam - Labs and Meds CBC 05/25/17 Range/Units 04:00 WBC 9.3 (4.5-11.0) K/mm3 RBC 4.34 (3.65-5.03) M/mm3 Hgb 11.6 (10.1-14.3) gm/dl Hct 34.6 (30.3-42.9) % Plt Count 292 (140-440) K/mm3 Comprehensive Metabolic Panel 05/25/17 Range/Units 04:00 Sodium 142 (137-145) mmol/L Potassium 3.5 L (3.6-5.0) mmol/L Chloride 102.6 (98-107) mmol/L Carbon Dioxide 25 (22-30) mmol/L BUN 32 H (7-17) mg/dL Creatinine 4.1 H (0.7-1.2) mg/dL Glucose 115 H (65-100) mg/dL Calcium 8.5 (8.4-10.2) mg/dL
--- NOTE | 2017-05-25 13:35 | Progress Note ---
Assessment and Plan Assessment and plan: Patient is a 66-year-old woman with a history of hypertension, dyslipidemia and CVA with hemiparesis 2006; therefore, ambulates with a walker who presented with weakness and inability to ambulate. She was found have a creatinine at 3.2 and severe hypokalemia. There is no renal function baseline in this computer system to compare don't know if this is chronic kidney disease or acute renal failure, however her creatinine has increased so this is acute renal failure. Renal ultrasound reported as renal parenchymal disease. -Acute renal failure, suspect vasomotor nephropathy: Treat with IV fluids, await nephrology evaluation -Hypovolemic shock, present on admission: Successfully treated with IV fluids -Severe hypokalemia, replaced and resolved: BMP a.m. -Hypomagnesemia: Replaced, recheck in a.m. -Elevated troponin: Consulted cardiology, ordered TTE -Ambulation difficulties: Consult PT -DVT prophylaxis: Change subcutaneous Lovenox to heparin -Moderate malnutrition: Consult dietary -Transaminitis, has low blood pressure: GI evaluated and agrees most likely shock liver, improving 05/23/17: d/w daughter over the phone in patient's room and answered all her questions. Cr still increasing, materials development engineer to see, hypokalemia, replaced 05/24/17: Doing better, daughter, Yaa was suppose to meet me between 8a-9am, no show. Cr still increasing but leveling off some, repeat in am. TTE reported as estimated EF 55-60%, abnormal left ventricular diastolic filling consistent with impaired relaxation, right ventricular systolic function is normal. Stress test in a.m.. 05/25/17: stress test pending, renal function worsening, Physical therapy recommends SNF, I called the number for daughter Jax in the computer but it is disconnected, d/w case management, repeat am labs History Interval history: Patient seen and examined. Follow up on current diagnosis/weakness which has improved. Overnight uneventful. No cp, sob, n/v or severe headaches. Imaging, old records, testing, labs, nursing notes reviewed. Hospitalist Physical - Constitutional Vitals: Temp Pulse Resp BP Pulse Ox 98.7 F 83 18 92/53 97 05/25/17 04:00 05/25/17 08:43 05/25/17 04:00 05/25/17 08:43 05/25/17 04:00 General appearance: Present: no acute distress, well-nourished Results - Labs CBC & Chem 7: 05/25/17 04:00 05/25/17 04:00 Labs: Laboratory Last Values WBC 9.3 K/mm3 (4.5-11.0) 05/25/17 04:00 RBC 4.34 M/mm3 (3.65-5.03) 05/25/17 04:00 Hgb 11.6 gm/dl (10.1-14.3) 05/25/17 04:00 Hct 34.6 % (30.3-42.9) 05/25/17 04:00 MCV 80 fl (79-97) 05/25/17 04:00 MCH 27 pg (28-32) L 05/25/17 04:00 MCHC 33 % (30-34) 05/25/17 04:00 RDW 14.5 % (13.2-15.2) 05/25/17 04:00 Plt Count 292 K/mm3 (140-440) 05/25/17 04:00 Lymph % (Auto) 14.6 % (13.4-35.0) 05/23/17 07:05 [place] % (Auto) 10.8 % (0.0-7.3) H 05/23/17 07:05 Eos % (Auto) 2.6 % (0.0-4.3) 05/23/17 07:05 Baso % (Auto) 0.6 % (0.0-1.8) 05/23/17 07:05 Lymph # 1.5 K/mm3 (1.2-5.4) 05/23/17 07:05 [place] # 1.1 K/mm3 (0.0-0.8) H 05/23/17 07:05 Eos # 0.3 K/mm3 (0.0-0.4) 05/23/17 07:05 Baso # 0.1 K/mm3 (0.0-0.1) 05/23/17 07:05 Seg Neutrophils % 71.4 % (40.0-70.0) H 05/23/17 07:05 Seg Neutrophils # 7.4 K/mm3 (1.8-7.7) 05/23/17 07:05 Sodium 142 mmol/L (137-145) 05/25/17 04:00 Potassium 3.5 mmol/L (3.6-5.0) L 05/25/17 04:00 Chloride 102.6 mmol/L (98-107) 05/25/17 04:00 Carbon Dioxide 25 mmol/L (22-30) 05/25/17 04:00 Anion Gap 18 mmol/L 05/25/17 04:00 BUN 32 mg/dL (7-17) H 05/25/17 04:00 Creatinine 4.1 mg/dL (0.7-1.2) H 05/25/17 04:00 Estimated GFR 13 ml/min 05/25/17 04:00 BUN/Creatinine Ratio 7.80 % 05/25/17 04:00 Glucose 115 mg/dL (65-100) H 05/25/17 04:00 Calcium 8.5 mg/dL (8.4-10.2) 05/25/17 04:00 Phosphorus 3.20 mg/dL (2.5-4.5) 05/23/17 07:05 Magnesium 2.00 mg/dL (1.7-2.3) 05/25/17 04:00 Ferritin 167.6 ng/mL (13.0-400.0) 05/24/17 05:46 Total Bilirubin 0.20 mg/dL (0.1-1.2) 05/24/17 05:46 Direct Bilirubin < 0.2 mg/dL (0-0.2) 05/24/17 05:46 Indirect Bilirubin 0.0 mg/dL 05/24/17 05:46 AST 213 units/L (5-40) H 05/24/17 05:46 ALT 191 units/L (7-56) H 05/24/17 05:46 Alkaline Phosphatase 78 units/L (35-129) 05/24/17 05:46 Troponin T 0.169 ng/mL (0.00-0.029) H* 05/21/17 10:09 Total Protein 6.4 g/dL (6.3-8.2) 05/24/17 05:46 Albumin 2.7 g/dL (3.9-5) L 05/24/17 05:46 Albumin/Globulin Ratio 0.7 % 05/24/17 05:46 Triglycerides 119 mg/dL (2-149) 05/21/17 10:09 Cholesterol 102 mg/dL (50-199) 05/21/17 10:09 LDL Cholesterol Direct 46 mg/dL (50-130) L 05/21/17 10:09 HDL Cholesterol 33 mg/dL (40-59) L 05/21/17 10:09 Cholesterol/HDL Ratio 3.09 % 05/21/17 10:09 TSH 3.080 mlU/mL (0.270-4.200) 05/21/17 10:09 Urine Color Yellow (Yellow) 05/22/17 Unknown Urine Turbidity Cloudy (Clear) 05/22/17 Unknown Urine pH 5.0 (5.0-7.0) 05/22/17 Unknown Ur Specific [place] 1.005 (1.003-1.030) 05/22/17 Unknown Urine Protein 30 mg/dl mg/dL (Negative) 05/22/17 Unknown Urine Glucose (UA) Neg mg/dL (Negative) 05/22/17 Unknown Urine Ketones Neg mg/dL (Negative) 05/22/17 Unknown Urine Blood Lg (Negative) 05/22/17 Unknown Urine Nitrite Neg (Negative) 05/22/17 Unknown Urine Bilirubin Neg (Negative) 05/22/17 Unknown Urine Urobilinogen < 2.0 mg/dL (<2.0) 05/22/17 Unknown Ur Leukocyte Esterase Lg (Negative) 05/22/17 Unknown Urine WBC (Auto) 151.0 /HPF (0.0-6.0) H 05/22/17 Unknown Urine RBC (Auto) 56.0 /HPF (0.0-6.0) 05/22/17 Unknown U Epithel Cells (Auto) 1.0 /HPF (0-13.0) 05/22/17 Unknown Urine Bacteria (Auto) 3+ /HPF (Negative) 05/22/17 Unknown Urine Mucus Few /HPF 05/22/17 Unknown Plasma/Serum Alcohol < 0.01 gm% (0-0.07) 05/21/17 10:09
--- NOTE | 2017-05-25 14:28 | Progress Note ---
Assessment and Plan Patient Problems (1) Acute kidney injury superimposed on CKD Current Visit: Yes Status: Acute Plan to address problem: CR continues to get worse. Requested for ANCAs, SPEP, complements. Baseline kidney function unknown. Continue gentle volume repletion. (2) Hypertensive chronic kidney disease with stage 1 through stage 4 chronic kidney disease, or unspecified chronic kidney disease Current Visit: Yes Status: Acute Plan to address problem: BP low. D/fabiana Amlodipine. Continue IVF. Monitor BP closely. (3) Transaminitis Current Visit: Yes Status: Acute Plan to address problem: Improving, Follow-up liver function tests (4) History of cerebrovascular accident Current Visit: Yes Status: Acute Plan to address problem: Continue medications (5) Hypokalemia Current Visit: Yes Status: Acute Plan to address problem: Replete Potassium Subjective Date of service: 05/25/17 Principal diagnosis: acute kidney injury Interval history: No new events, No SOB/CP Objective - Exam Narrative Exam: L elderly -Romanian female lying in bed in no acute distress HEENT normocephalic atraumatic, pupils equal reactive to light, pink, clear oropharynx Neck supple, no thyromegaly no jugular venous distention CVS S1-S2 regular rate rhythm without murmur, rub or gallop Chest clear to auscultation, no wheezing Abdomen soft nondistended nontender no organomegaly no bruit bowel sounds present Extremities no edema no cyanosis or clubbing Neuro awake, alert oriented x3 no gross deficit - Vital Signs Vital signs: Vital Signs - 12hr 05/25/17 05/25/17 05/25/17 04:00 08:27 08:39 Temperature 98.7 F Pulse Rate 70 60 88 Respiratory 18 Rate Blood Pressure 106/57 115/60 109/61 O2 Sat by Pulse 97 Oximetry 05/25/17 05/25/17 05/25/17 08:40 08:41 08:42 Temperature Pulse Rate 88 85 83 Respiratory Rate Blood Pressure 88/50 96/52 89/52 O2 Sat by Pulse Oximetry 05/25/17 08:43 Temperature Pulse Rate 83 Respiratory Rate Blood Pressure 92/53 O2 Sat by Pulse Oximetry - Lab 05/25/17 04:00 05/25/17 04:00 Most recent lab results Calcium 8.5 mg/dL (8.4-10.2) 05/25/17 04:00 Phosphorus 3.20 mg/dL (2.5-4.5) 05/23/17 07:05 Magnesium 2.00 mg/dL (1.7-2.3) 05/25/17 04:00
[2017-05-25] MEDS: IMODIUM A-D PO PRN (16:14)
--- NOTE | 2017-05-25 22:45 | Treadmill Report ---
INDICATION: Chest pain. ORDERING PHYSICIAN: Javier Chandler MD FINDINGS: There is no scintigraphic evidence of myocardial ischemia. The left ventricle is normal in size and systolic function. The left ventricular ejection fraction is measured at 74%. Normal wall motion and wall thickening is noted on gated imaging. CONCLUSION: Normal perfusion scan. JOB# [id number] AKAshley/NTS
[2017-05-26 02:38] LABS: Sodium, Urine 64 mEq/L
[2017-05-26] MEDS: IMODIUM A-D PO PRN (06:18)
[2017-05-26] MEDS: D5NS 1,000 ML IV SCH ×2 (07:48→20:15)
[2017-05-26 08:08] LABS: Hematocrit 35.1 % (30.3-42.9); Hemoglobin 11.7 gm/dl (10.1-14.3); Mean Corpuscular HGB Conc 33 % (30-34); Mean Corpuscular Hemoglobin 26 pg (28-32); Mean Corpuscular Volume 80 fl (79-97); Platelet Count 316 K/mm3 (140-440); Red Blood Count 4.41 M/mm3 (3.65-5.03); Red Cell Distribution Width 14.4 % (13.2-15.2)
[2017-05-26 08:25] LABS: BUN/Creatinine Ratio 9.21; Calcium 8.3 mg/dL (8.4-10.2); Chloride 102.4 mmol/L (98-107); Potassium 3.3 mmol/L (3.6-5.0)
[2017-05-26] MEDS: ROCEPHIN/NS 1 GM/50 ML 1 GM/50 ML BAG IV SCH (09:56)
[2017-05-26] MEDS: BABY ASPIRIN PO SCH (09:58)
[2017-05-26] MEDS: FISH OIL PO SCH (09:58)
[2017-05-26] MEDS: HEPARIN SUB-Q SCH ×2 (09:59→22:53)
--- NOTE | 2017-05-26 10:49 | Progress Note ---
Assessment and Plan Elevated troponin with no active symptoms or EKG changes suggestive for an acute MS. Normal stress test this admission Normal LVEF Acute kidney injury - nephrology onboard Failure to thrive Significantly elevated LFTs (patient on on crestor 40 as outpatient) trending downwards Hypertension Hypokalemia - improved Plan: Conservative cardiac management. Subjective Date of service: 05/26/17 Principal diagnosis: acute kidney injury Interval history: Patient reports she feels better. She denies chest pain and shortness of breath. Objective Vital Signs Temp Pulse Resp Resp BP Pulse Ox 05/26/17 07:00 98.5 F 65 20 105/57 97 05/26/17 04:30 98.4 F 70 20 118/57 99 05/25/17 22:00 98.6 F 82 20 100/62 98 05/25/17 19:21 98.9 F 78 18 97/58 98 05/25/17 17:53 98.4 F 76 18 103/58 99 05/25/17 14:54 17 - Physical Examination General: No Apparent Distress Neck: Positive: trachea midline Cardiac: Positive: Reg Rate and Rhythm - Labs and Meds CBC 05/26/17 Range/Units 06:39 WBC 10.0 (4.5-11.0) K/mm3 RBC 4.41 (3.65-5.03) M/mm3 Hgb 11.7 (10.1-14.3) gm/dl Hct 35.1 (30.3-42.9) % Plt Count 316 (140-440) K/mm3 Comprehensive Metabolic Panel 05/26/17 Range/Units 06:39 Carbon Dioxide 23 (22-30) mmol/L BUN 35 H (7-17) mg/dL Creatinine 3.8 H (0.7-1.2) mg/dL Glucose 138 H (65-100) mg/dL Calcium 8.3 L (8.4-10.2) mg/dL
--- NOTE | 2017-05-26 11:24 | Progress Note ---
Assessment and Plan Patient Problems (1) Acute kidney injury superimposed on CKD Current Visit: Yes Status: Acute Plan to address problem: CR has started to trend down. Now at 3.8. F/u on ANCAs, SPEP, complements. Baseline kidney function unknown. Continue gentle volume repletion. (2) Hypertensive chronic kidney disease with stage 1 through stage 4 chronic kidney disease, or unspecified chronic kidney disease Current Visit: Yes Status: Acute Plan to address problem: Pt was hypotensive. BP improving after d/cing of Amlodipine. Continue IVF. Monitor BP closely. (3) Transaminitis Current Visit: Yes Status: Acute Plan to address problem: Improving, Follow-up liver function tests (4) History of cerebrovascular accident Current Visit: Yes Status: Acute Plan to address problem: Continue medications (5) Hypokalemia Current Visit: Yes Status: Acute Plan to address problem: Replete Potassium Subjective Date of service: 05/26/17 Principal diagnosis: acute kidney injury Interval history: No new events, No SOB/CP Objective - Exam Narrative Exam: L elderly -Greek female lying in bed in no acute distress HEENT normocephalic atraumatic, pupils equal reactive to light, pink, clear oropharynx Neck supple, no thyromegaly no jugular venous distention CVS S1-S2 regular rate rhythm without murmur, rub or gallop Chest clear to auscultation, no wheezing Abdomen soft nondistended nontender no organomegaly no bruit bowel sounds present Extremities no edema no cyanosis or clubbing Neuro awake, alert oriented x3 no gross deficit - Vital Signs Vital signs: Vital Signs - 12hr 05/26/17 05/26/17 04:30 07:00 Temperature 98.4 F 98.5 F Pulse Rate 70 65 Respiratory 20 20 Rate Blood Pressure 118/57 105/57 O2 Sat by Pulse 99 97 Oximetry - Lab 05/26/17 06:39 05/26/17 06:39 Most recent lab results Calcium 8.3 mg/dL (8.4-10.2) L 05/26/17 06:39 Phosphorus 3.20 mg/dL (2.5-4.5) 05/23/17 07:05 Magnesium 2.00 mg/dL (1.7-2.3) 05/25/17 04:00 Urine Creatinine < 4.2 mg/dL (0.1-20.0) 05/26/17 02:20 Urine Sodium 64 mEq/L 05/26/17 02:20 Urine Total Protein 54 mg/dL (5-11.8) H 05/26/17 02:20
--- NOTE | 2017-05-26 11:36 | Progress Note ---
Assessment and Plan Assessment and plan: Acute renal failure. Etiology likely secondary to vasomotor nephropathy. Nephrology following. CR still elevated. Follow-up for ANCAs, SPEP, complements. Baseline kidney function unknown. Continue gentle volume repletion. Hypovolemic shock, present on admission. Resolved. Successfully treated with IV fluids Severe hypokalemia, replaced and resolved. Hypomagnesemia: Replaced, recheck in a.m. Elevated troponin. TTE reported as estimated EF 55-60%, abnormal left ventricular diastolic filling consistent with impaired relaxation, right ventricular systolic function is normal. Stress test normal. Cardiology consulted and recommends conservative cardiac management. Deconditioning. PT/OT evaluation. Recommendations for SNF. Case management consultation for placement. DVT prophylaxis. Continue heparin. Moderate processing calorie malnutrition. Dietitian following. Transaminitis. Resolving. Etiology secondary to ischemic hepatitis/shock liver. History Interval history: Patient is a 66-year-old woman with a history of hypertension, dyslipidemia and CVA with hemiparesis 2006; therefore, ambulates with a walker who presented with weakness and inability to ambulate. She was found have a creatinine at 3.2 and severe hypokalemia. There is no renal function baseline in this computer system to compare don't know if this is chronic kidney disease or acute renal failure, however her creatinine has increased so this is acute renal failure. Renal ultrasound reported as renal parenchymal disease. Hospitalist Physical - Constitutional Vitals: Temp Pulse Resp BP Pulse Ox 98.5 F 65 20 105/57 97 05/26/17 07:00 05/26/17 07:00 05/26/17 07:00 05/26/17 07:00 05/26/17 07:00 General appearance: Present: no acute distress, well-nourished - EENT Eyes: Present: PERRL, EOM intact ENT: hearing intact, clear oral mucosa, dentition normal - Neck Neck: Present: supple, normal ROM - Respiratory Respiratory effort: normal Respiratory: bilateral: CTA - Cardiovascular Rhythm: regular Heart Sounds: Present: S1 & S2. Absent: gallop, rub - Extremities Extremities: no ischemia, No edema, Full ROM - Abdominal General gastrointestinal: soft, non-tender, non-distended, normal bowel sounds - Integumentary Integumentary: Present: clear, warm, dry - Neurologic Neurologic: CNII-XII intact, moves all extremities Results - Labs CBC & Chem 7: 05/26/17 06:39 08 06:39 Labs: Laboratory Last Values WBC 10.0 K/mm3 (4.5-11.0) 05/26/17 06:39 RBC 4.41 M/mm3 (3.65-5.03) 05/26/17 06:39 Hgb 11.7 gm/dl (10.1-14.3) 05/26/17 06:39 Hct 35.1 % (30.3-42.9) 05/26/17 06:39 MCV 80 fl (79-97) 05/26/17 06:39 MCH 26 pg (28-32) L 05/26/17 06:39 MCHC 33 % (30-34) 05/26/17 06:39 RDW 14.4 % (13.2-15.2) 05/26/17 06:39 Plt Count 316 K/mm3 (140-440) 05/26/17 06:39 Lymph % (Auto) 14.6 % (13.4-35.0) 05/23/17 07:05 [place] % (Auto) 10.8 % (0.0-7.3) H 05/23/17 07:05 Eos % (Auto) 2.6 % (0.0-4.3) 05/23/17 07:05 Baso % (Auto) 0.6 % (0.0-1.8) 05/23/17 07:05 Lymph # 1.5 K/mm3 (1.2-5.4) 05/23/17 07:05 [place] # 1.1 K/mm3 (0.0-0.8) H 05/23/17 07:05 Eos # 0.3 K/mm3 (0.0-0.4) 05/23/17 07:05 Baso # 0.1 K/mm3 (0.0-0.1) 05/23/17 07:05 Seg Neutrophils % 71.4 % (40.0-70.0) H 05/23/17 07:05 Seg Neutrophils # 7.4 K/mm3 (1.8-7.7) 05/23/17 07:05 Sodium 142 mmol/L (137-145) 05/25/17 04:00 Potassium 3.5 mmol/L (3.6-5.0) L 05/25/17 04:00 Chloride 102.6 mmol/L (98-107) 05/25/17 04:00 Carbon Dioxide 23 mmol/L (22-30) 05/26/17 06:39 Anion Gap 18 mmol/L 05/25/17 04:00 BUN 35 mg/dL (7-17) H 05/26/17 06:39 Creatinine 3.8 mg/dL (0.7-1.2) H 05/26/17 06:39 Estimated GFR 14 ml/min 05/26/17 06:39 BUN/Creatinine Ratio 9.21 % 05/26/17 06:39 Glucose 138 mg/dL (65-100) H 05/26/17 06:39 Calcium 8.3 mg/dL (8.4-10.2) L 05/26/17 06:39 Phosphorus 3.20 mg/dL (2.5-4.5) 05/23/17 07:05 Magnesium 2.00 mg/dL (1.7-2.3) 05/25/17 04:00 Ferritin 167.6 ng/mL (13.0-400.0) 05/24/17 05:46 Total Bilirubin 0.20 mg/dL (0.1-1.2) 05/24/17 05:46 Direct Bilirubin < 0.2 mg/dL (0-0.2) 05/24/17 05:46 Indirect Bilirubin 0.0 mg/dL 05/24/17 05:46 AST 213 units/L (5-40) H 05/24/17 05:46 ALT 191 units/L (7-56) H 05/24/17 05:46 Alkaline Phosphatase 78 units/L (35-129) 05/24/17 05:46 Troponin T 0.169 ng/mL (0.00-0.029) H* 05/21/17 10:09 Total Protein 6.4 g/dL (6.3-8.2) 05/24/17 05:46 Albumin 2.7 g/dL (3.9-5) L 05/24/17 05:46 Albumin/Globulin Ratio 0.7 % 05/24/17 05:46 Triglycerides 119 mg/dL (2-149) 05/21/17 10:09 Cholesterol 102 mg/dL (50-199) 05/21/17 10:09 LDL Cholesterol Direct 46 mg/dL (50-130) L 05/21/17 10:09 HDL Cholesterol 33 mg/dL (40-59) L 05/21/17 10:09 Cholesterol/HDL Ratio 3.09 % 05/21/17 10:09 TSH 3.080 mlU/mL (0.270-4.200) 05/21/17 10:09 Urine Color Yellow (Yellow) 05/22/17 Unknown Urine Turbidity Cloudy (Clear) 05/22/17 Unknown Urine pH 5.0 (5.0-7.0) 05/22/17 Unknown Ur Specific [place] 1.005 (1.003-1.030) 05/22/17 Unknown Urine Protein 30 mg/dl mg/dL (Negative) 05/22/17 Unknown Urine Glucose (UA) Neg mg/dL (Negative) 05/22/17 Unknown Urine Ketones Neg mg/dL (Negative) 05/22/17 Unknown Urine Blood Lg (Negative) 05/22/17 Unknown Urine Nitrite Neg (Negative) 05/22/17 Unknown Urine Bilirubin Neg (Negative) 05/22/17 Unknown Urine Urobilinogen < 2.0 mg/dL (<2.0) 05/22/17 Unknown Ur Leukocyte Esterase Lg (Negative) 05/22/17 Unknown Urine WBC (Auto) 151.0 /HPF (0.0-6.0) H 05/22/17 Unknown Urine RBC (Auto) 56.0 /HPF (0.0-6.0) 05/22/17 Unknown U Epithel Cells (Auto) 1.0 /HPF (0-13.0) 05/22/17 Unknown Urine Bacteria (Auto) 3+ /HPF (Negative) 05/22/17 Unknown Urine Mucus Few /HPF 05/22/17 Unknown Urine Creatinine < 4.2 mg/dL (0.1-20.0) 05/26/17 02:20 Urine Microalbumin 8.6 mg/dL (0.1-34.0) 05/26/17 02:20 Microalb/Creat Ratio 2000.0 ug/mg 05/26/17 02:20 Urine Sodium 64 mEq/L 05/26/17 02:20 Urine Total Protein 54 mg/dL (5-11.8) H 05/26/17 02:20 Plasma/Serum Alcohol < 0.01 gm% (0-0.07) 05/21/17 10:09
[2017-05-27 05:46] LABS: Basophils % (Auto) 0.4 % (0.0-1.8); Eosinophils % (Auto) 4.8 % (0.0-4.3); Hemoglobin 11.4 gm/dl (10.1-14.3); Mean Corpuscular HGB Conc 33 % (30-34); Mean Corpuscular Hemoglobin 26 pg (28-32); Mean Corpuscular Volume 81 fl (79-97); Platelet Count 311 K/mm3 (140-440); Red Blood Count 4.33 M/mm3 (3.65-5.03)
[2017-05-27 06:30] LABS: Calcium 8.5 mg/dL (8.4-10.2); Chloride 106.8 mmol/L (98-107); Potassium 3.3 mmol/L (3.6-5.0)
[2017-05-27] MEDS: D5NS 1,000 ML IV SCH ×2 (07:31→17:44)
[2017-05-27] MEDS: FISH OIL PO SCH (10:01)
[2017-05-27] MEDS: BABY ASPIRIN PO SCH (10:01)
[2017-05-27] MEDS: ROCEPHIN/NS 1 GM/50 ML 1 GM/50 ML BAG IV SCH (10:01)
[2017-05-27] MEDS: HEPARIN SUB-Q SCH ×2 (10:02→21:49)
--- NOTE | 2017-05-27 11:24 | Progress Note ---
Assessment and Plan Elevated troponin with no active symptoms or EKG changes suggestive for an acute OR. Normal stress test this admission Normal LVEF Acute kidney injury - nephrology onboard Failure to thrive Significantly elevated LFTs (patient on on crestor 40 as outpatient) trending downwards Hypertension Hypokalemia - improved Conservative cardiac management. Subjective Date of service: 05/27/17 Principal diagnosis: acute kidney injury Interval history: Patient reports she feels better. She denies chest pain and shortness of breath. Objective Vital Signs Temp Pulse Resp BP Pulse Ox 05/27/17 07:00 98.5 F 71 20 117/58 100 05/27/17 04:00 99.1 F 67 20 110/58 05/26/17 23:22 98.6 F 73 18 116/57 05/26/17 22:00 70 18 05/26/17 21:07 98.6 F 80 18 132/60 05/26/17 17:00 98.3 F 82 20 106/62 98 05/26/17 12:00 97.9 F 74 20 130/62 96 - Physical Examination General: No Apparent Distress HEENT: Positive: PERRL Neck: Positive: trachea midline Cardiac: Positive: Reg Rate and Rhythm Lungs: Positive: Decreased Breath Sounds Extremities: Absent: edema - Labs and Meds CBC 05/27/17 Range/Units 05:23 WBC 9.0 (4.5-11.0) K/mm3 RBC 4.33 (3.65-5.03) M/mm3 Hgb 11.4 (10.1-14.3) gm/dl Hct 35.0 (30.3-42.9) % Plt Count 311 (140-440) K/mm3 Lymph # 1.9 (1.2-5.4) K/mm3 [place] # 1.2 H (0.0-0.8) K/mm3 Eos # 0.4 (0.0-0.4) K/mm3 Baso # 0.0 (0.0-0.1) K/mm3 Comprehensive Metabolic Panel 05/27/17 Range/Units 05:23 Sodium 146 H (137-145) mmol/L Potassium 3.3 L (3.6-5.0) mmol/L Chloride 106.8 (98-107) mmol/L Carbon Dioxide 26 (22-30) mmol/L BUN 28 H (7-17) mg/dL Creatinine 3.5 H (0.7-1.2) mg/dL Glucose 103 H (65-100) mg/dL Calcium 8.5 (8.4-10.2) mg/dL
--- NOTE | 2017-05-27 11:59 | Progress Note ---
Assessment and Plan Assessment and plan: Acute renal failure. Etiology likely secondary to vasomotor nephropathy. Nephrology following. CR still elevated but improving. Follow-up for ANCAs, SPEP, complements. Baseline kidney function unknown. Continue gentle volume repletion. Hypovolemic shock, present on admission. Resolved. Successfully treated with IV fluids. Amlodipine was discontinued. Severe hypokalemia, replaced and resolved. Hypomagnesemia: Replaced, recheck in a.m. Elevated troponin. TTE reported as estimated EF 55-60%, abnormal left ventricular diastolic filling consistent with impaired relaxation, right ventricular systolic function is normal. Stress test normal. Cardiology consulted and recommends conservative cardiac management. Deconditioning. PT/OT evaluation. Recommendations for SNF. Case management consultation for placement. DVT prophylaxis. Continue heparin. Moderate processing calorie malnutrition. Dietitian following. Transaminitis. Resolving. Etiology secondary to ischemic hepatitis/shock liver. History Interval history: Patient is a 66-year-old woman with a history of hypertension, dyslipidemia and CVA with hemiparesis 2006; therefore, ambulates with a walker who presented with weakness and inability to ambulate. She was found have a creatinine at 3.2 and severe hypokalemia. There is no renal function baseline in this computer system to compare don't know if this is chronic kidney disease or acute renal failure, however her creatinine has increased so this is acute renal failure. Renal ultrasound reported as renal parenchymal disease. Patient is aphasic. Hospitalist Physical - Constitutional Vitals: Temp Pulse Resp BP Pulse Ox 98.5 F 71 20 117/58 100 05/27/17 07:00 05/27/17 07:00 05/27/17 07:00 05/27/17 07:00 05/27/17 07:00 General appearance: Present: no acute distress, well-nourished - EENT Eyes: Present: PERRL, EOM intact ENT: hearing intact, clear oral mucosa, dentition normal - Neck Neck: Present: supple, normal ROM - Respiratory Respiratory effort: normal Respiratory: bilateral: CTA - Cardiovascular Rhythm: regular Heart Sounds: Present: S1 & S2. Absent: gallop, rub - Extremities Extremities: no ischemia, No edema, Full ROM - Abdominal General gastrointestinal: soft, non-tender, non-distended, normal bowel sounds - Integumentary Integumentary: Present: clear, warm, dry - Neurologic Neurologic: CNII-XII intact, moves all extremities Results - Labs CBC & Chem 7: 05/27/17 05:23 05/27/17 05:23 Labs: Laboratory Last Values WBC 9.0 K/mm3 (4.5-11.0) 05/27/17 05:23 RBC 4.33 M/mm3 (3.65-5.03) 05/27/17 05:23 Hgb 11.4 gm/dl (10.1-14.3) 05/27/17 05:23 Hct 35.0 % (30.3-42.9) 05/27/17 05:23 MCV 81 fl (79-97) 05/27/17 05:23 MCH 26 pg (28-32) L 05/27/17 05:23 MCHC 33 % (30-34) 05/27/17 05:23 RDW 15.0 % (13.2-15.2) 05/27/17 05:23 Plt Count 311 K/mm3 (140-440) 05/27/17 05:23 Lymph % (Auto) 21.3 % (13.4-35.0) 05/27/17 05:23 [place] % (Auto) 13.3 % (0.0-7.3) H 05/27/17 05:23 Eos % (Auto) 4.8 % (0.0-4.3) H 05/27/17 05:23 Baso % (Auto) 0.4 % (0.0-1.8) 05/27/17 05:23 Lymph # 1.9 K/mm3 (1.2-5.4) 05/27/17 05:23 [place] # 1.2 K/mm3 (0.0-0.8) H 05/27/17 05:23 Eos # 0.4 K/mm3 (0.0-0.4) 05/27/17 05:23 Baso # 0.0 K/mm3 (0.0-0.1) 05/27/17 05:23 Seg Neutrophils % 60.2 % (40.0-70.0) 05/27/17 05:23 Seg Neutrophils # 5.4 K/mm3 (1.8-7.7) 05/27/17 05:23 Sodium 146 mmol/L (137-145) H 05/27/17 05:23 Potassium 3.3 mmol/L (3.6-5.0) L 05/27/17 05:23 Chloride 106.8 mmol/L (98-107) 05/27/17 05:23 Carbon Dioxide 26 mmol/L (22-30) 05/27/17 05:23 Anion Gap 17 mmol/L 05/27/17 05:23 BUN 28 mg/dL (7-17) H 05/27/17 05:23 Creatinine 3.5 mg/dL (0.7-1.2) H 05/27/17 05:23 Estimated GFR 16 ml/min 05/27/17 05:23 BUN/Creatinine Ratio 8.00 % 05/27/17 05:23 Glucose 103 mg/dL (65-100) H 05/27/17 05:23 Calcium 8.5 mg/dL (8.4-10.2) 05/27/17 05:23 Phosphorus 3.20 mg/dL (2.5-4.5) 05/23/17 07:05 Magnesium 2.00 mg/dL (1.7-2.3) 05/25/17 04:00 Ferritin 167.6 ng/mL (13.0-400.0) 05/24/17 05:46 Total Bilirubin 0.20 mg/dL (0.1-1.2) 05/24/17 05:46 Direct Bilirubin < 0.2 mg/dL (0-0.2) 05/24/17 05:46 Indirect Bilirubin 0.0 mg/dL 05/24/17 05:46 AST 213 units/L (5-40) H 05/24/17 05:46 ALT 191 units/L (7-56) H 05/24/17 05:46 Alkaline Phosphatase 78 units/L (35-129) 05/24/17 05:46 Troponin T 0.169 ng/mL (0.00-0.029) H* 05/21/17 10:09 Total Protein 6.4 g/dL (6.3-8.2) 05/24/17 05:46 Albumin 2.7 g/dL (3.9-5) L 05/24/17 05:46 Albumin/Globulin Ratio 0.7 % 05/24/17 05:46 Triglycerides 119 mg/dL (2-149) 05/21/17 10:09 Cholesterol 102 mg/dL (50-199) 05/21/17 10:09 LDL Cholesterol Direct 46 mg/dL (50-130) L 05/21/17 10:09 HDL Cholesterol 33 mg/dL (40-59) L 05/21/17 10:09 Cholesterol/HDL Ratio 3.09 % 05/21/17 10:09 TSH 3.080 mlU/mL (0.270-4.200) 05/21/17 10:09 Urine Color Yellow (Yellow) 05/22/17 Unknown Urine Turbidity Cloudy (Clear) 05/22/17 Unknown Urine pH 5.0 (5.0-7.0) 05/22/17 Unknown Ur Specific [place] 1.005 (1.003-1.030) 05/22/17 Unknown Urine Protein 30 mg/dl mg/dL (Negative) 05/22/17 Unknown Urine Glucose (UA) Neg mg/dL (Negative) 05/22/17 Unknown Urine Ketones Neg mg/dL (Negative) 05/22/17 Unknown Urine Blood Lg (Negative) 05/22/17 Unknown Urine Nitrite Neg (Negative) 05/22/17 Unknown Urine Bilirubin Neg (Negative) 05/22/17 Unknown Urine Urobilinogen < 2.0 mg/dL (<2.0) 05/22/17 Unknown Ur Leukocyte Esterase Lg (Negative) 05/22/17 Unknown Urine WBC (Auto) 151.0 /HPF (0.0-6.0) H 05/22/17 Unknown Urine RBC (Auto) 56.0 /HPF (0.0-6.0) 05/22/17 Unknown U Epithel Cells (Auto) 1.0 /HPF (0-13.0) 05/22/17 Unknown Urine Bacteria (Auto) 3+ /HPF (Negative) 05/22/17 Unknown Urine Mucus Few /HPF 05/22/17 Unknown Urine Creatinine < 4.2 mg/dL (0.1-20.0) 05/26/17 02:20 Urine Microalbumin 8.6 mg/dL (0.1-34.0) 05/26/17 02:20 Microalb/Creat Ratio 2000.0 ug/mg 05/26/17 02:20 Urine Sodium 64 mEq/L 05/26/17 02:20 Urine Total Protein 54 mg/dL (5-11.8) H 05/26/17 02:20 Plasma/Serum Alcohol < 0.01 gm% (0-0.07) 05/21/17 10:09
--- NOTE | 2017-05-27 15:06 | Progress Note ---
Assessment and Plan Patient Problems (1) Acute kidney injury superimposed on CKD Current Visit: Yes Status: Acute Plan to address problem: CR continues to trend down. Now at 3.5. F/u on ANCAs, SPEP, complements. Baseline kidney function unknown. Continue gentle volume repletion. If trend continues pt can be d/[place] in am with follow up in our office in 1 week (2) Hypertensive chronic kidney disease with stage 1 through stage 4 chronic kidney disease, or unspecified chronic kidney disease Current Visit: Yes Status: Acute Plan to address problem: Pt was hypotensive. BP improving after d/cing of Amlodipine. Continue IVF. Monitor BP closely. (3) Transaminitis Current Visit: Yes Status: Acute Plan to address problem: Improving, Follow-up liver function tests (4) History of cerebrovascular accident Current Visit: Yes Status: Acute Plan to address problem: Continue medications (5) Hypokalemia Current Visit: Yes Status: Acute Plan to address problem: Replete Potassium Subjective Date of service: 05/27/17 Principal diagnosis: acute kidney injury Interval history: No new events, No SOB/CP Objective - Exam Narrative Exam: L elderly -Citizen Of [place] female lying in bed in no acute distress HEENT normocephalic atraumatic, pupils equal reactive to light, pink, clear oropharynx Neck supple, no thyromegaly no jugular venous distention CVS S1-S2 regular rate rhythm without murmur, rub or gallop Chest clear to auscultation, no wheezing Abdomen soft nondistended nontender no organomegaly no bruit bowel sounds present Extremities no edema no cyanosis or clubbing Neuro awake, alert oriented x3 no gross deficit - Vital Signs Vital signs: Vital Signs - 12hr 05/27/17 05/27/17 05/27/17 04:00 07:00 12:00 Temperature 99.1 F 98.5 F 98.5 F Pulse Rate 67 71 72 Respiratory 20 20 20 Rate Blood Pressure 110/58 117/58 135/65 O2 Sat by Pulse 100 98 Oximetry - Lab 05/27/17 05:23 05/27/17 05:23 Most recent lab results Calcium 8.5 mg/dL (8.4-10.2) 05/27/17 05:23 Phosphorus 3.20 mg/dL (2.5-4.5) 05/23/17 07:05 Magnesium 2.00 mg/dL (1.7-2.3) 05/25/17 04:00 Urine Creatinine < 4.2 mg/dL (0.1-20.0) 05/26/17 02:20 Urine Sodium 64 mEq/L 05/26/17 02:20 Urine Total Protein 54 mg/dL (5-11.8) H 05/26/17 02:20
[2017-05-27] MEDS ORDERED: K-DUR PO ONE (16:00)
[2017-05-27 19:39] LABS: Myeloperoxidase Antibody <1.0 AI (<1.0)
[2017-05-28 04:31] LABS: Albumin 2.9 g/dL (3.8-4.8)
[2017-05-28 06:37] LABS: BUN/Creatinine Ratio 9.31; Calcium 8.6 mg/dL (8.4-10.2); Potassium 3.6 mmol/L (3.6-5.0)
[2017-05-28] MEDS: D5NS 1,000 ML IV SCH (07:10)
--- NOTE | 2017-05-28 08:31 | Discharge Summary ---
Providers - Providers Date of Admission: 05/21/17 13:07 Date of discharge: 05/28/17 Attending physician: MOLLY VILLALOBOS 05/21/17 17:38 Consult to Physician [CONS] Routine Consulting Provider: EDITH NOBLES Reason For Exam: Acute renal failure Place consult to:: Joyce Notified:: PLEASE CALL MD IN AM Was contact made?: No Comment:: said to place patient on list 05/22/17 15:01 Consult to Physician [CONS] Routine Consulting Provider: JODEE ROUSE Reason For Exam: elevated troponin Place consult to:: Padma CONNOLLY Notified:: PADMA CONNOLLY 05/22/17 15:10 Consult to Physician [CONS] Routine Consulting Provider: JOSEPH SPANGLER Reason For Exam: Transaminitis Place consult to:: Pal Spangler MD Notified:: Pal Spangler Physical Therapy Evaluation and Treat [CONS] Routine Comment: Reason For Exam: difficulty ambulation 05/22/17 15:11 Consult to Dietitian/Nutrition [CONS] Routine Physician Instructions: Reason For Exam: Reason for Consult: Malnutrition Primary care physician: [employer] INSPECTOR Hospitalization Reason for admission: weakness Condition: Stable Hospital course: This is a 66 yo AAF with past medical history of hypertension diagnosed for more than 25years ago, h/o cerebrovascular accident in 2006 with residual hemiparesis, who presented to [facility] by her family members, with complaints of progressive weakness, failure to thrive. Patient usually uses walker to ambulate , however for the past week prior to admission, she has been unable to do so secondary to her worsening weakness. Patient reported decreased appetite, decreased po and fluid intake lately. In ER, patient was found to have significantly elevated LFTs with with AST 655 ALT 298 and also abnormal kidney function with BUN/Cr at 38/3.2mg/dl. patient was also noted to be hypovolemic on admission with hypovolemic shock that resolved with IV fluid hydration. GI and nephrology consultations were obtained. Nephrology recommended renal US which showed echogenic kidneys bilaterally. Otherwise no acute hydro/mass/ stones seen. Etiology of the elevated liver function tests was felt to be secondary to shock liver from the low blood pressure. GI recommended no further workup. Nephrology requested for ANCAs, SPEP and complements to further workup the renal failure. Over the course of the hospitalization, the creatinine trended down after gentle diuresis. Nephrology felt that the patient could have further follow-up of the serology and workup as an outpatient. Patient was also seen by cardiology in consultation for an elevated troponin. Patient however had no active symptoms or EKG changes suggestive for an acute SC. Patient had a normal stress test that was completed on this hospitalization. Patient also was noted to have normal LVEF. Cardiology recommended continue conservative management. Case management was consulted for possible SNF placement. Arrangements were made for discharge. The patient is felt to have received maximal hospital benefit and will be discharged. Dedicated discharge time 36 minutes. Disposition: [id number]/[place]-[id number] SNF [facility] Time spent for discharge: 36 - Discharge Diagnoses (1) Acute kidney injury superimposed on CKD Status: Acute (2) History of cerebrovascular accident Status: Acute (3) Hypertensive chronic kidney disease with stage 1 through stage 4 chronic kidney disease, or unspecified chronic kidney disease Status: Acute (4) Hypokalemia Status: Acute (5) Transaminitis Status: Acute (6) Weakness Status: Acute Core Measure Documentation - Palliative Care Palliative Care/ Comfort Measures: Not Applicable - Core Measures Any of the following diagnoses?: none Exam - Constitutional Vitals: Temp Pulse Resp BP Pulse Ox 97.9 F 59 L 20 114/56 99 05/28/17 04:00 05/28/17 04:00 05/28/17 04:00 05/28/17 04:00 05/28/17 04:00 General appearance: Present: no acute distress, well-nourished - EENT Eyes: Present: PERRL ENT: hearing intact, clear oral mucosa - Neck Neck: Present: supple, normal ROM - Respiratory Respiratory effort: normal Respiratory: bilateral: CTA - Cardiovascular Heart Sounds: Present: S1 & S2. Absent: rub, click - Extremities Extremities: pulses symmetrical, No edema Peripheral Pulses: within normal limits - Abdominal General gastrointestinal: Present: soft, non-tender, non-distended, normal bowel sounds Female genitourinary: Present: normal - Integumentary Integumentary: Present: clear, warm, dry - Musculoskeletal Musculoskeletal: gait normal, strength equal bilaterally - Psychiatric Psychiatric: appropriate mood/affect, intact judgment & insight - Neurologic Neurologic: CNII-XII intact, moves all extremities Plan Activity: advance as tolerated Weight Bearing Status: Weight Bear as Tolerated Diet: renal Follow up with: ASHWIN CHAN MD [Primary Care Provider] - 3-5 Days ONEIDA GÓMEZ MD [Staff Physician] - 7 Days JODEE ROUSE MD [Staff Physician] - 7 Days JOSEPH SPANGLER MD [Staff Physician] - 7 Days
--- NOTE | 2017-05-28 11:00 | Progress Note ---
Assessment and Plan Elevated troponin with no active symptoms or EKG changes suggestive for an acute PA. Normal stress test this admission Normal LVEF Acute kidney injury - nephrology onboard Failure to thrive Significantly elevated LFTs (patient on on crestor 40 as outpatient) trending downwards Hypertension Hypokalemia - improved Conservative cardiac management. Subjective Date of service: 05/28/17 Principal diagnosis: acute kidney injury Interval history: No interval change. Objective Vital Signs Temp Pulse Resp Resp BP Pulse Ox 05/28/17 07:25 98.4 F 54 L 20 106/55 05/28/17 04:00 97.9 F 59 L 20 114/56 99 05/28/17 03:00 73 05/28/17 00:00 97.8 F 65 21 130/62 99 05/27/17 22:00 18 05/27/17 20:00 97.5 F L 66 20 129/60 100 05/27/17 17:43 98.4 F 70 20 128/67 98 05/27/17 12:00 98.5 F 72 20 135/65 98 - Physical Examination General: No Apparent Distress HEENT: Positive: PERRL Neck: Positive: trachea midline Cardiac: Positive: Reg Rate and Rhythm Extremities: Absent: edema - Labs and Meds Comprehensive Metabolic Panel 05/25/17 05/28/17 Range/Units 14:49 05:40 Sodium 143 (137-145) mmol/L Potassium 3.6 (3.6-5.0) mmol/L Chloride 106.0 (98-107) mmol/L Carbon Dioxide 24 (22-30) mmol/L BUN 27 H (7-17) mg/dL Creatinine 2.9 H (0.7-1.2) mg/dL Glucose 158 H (65-100) mg/dL Calcium 8.6 (8.4-10.2) mg/dL Albumin 2.9 L (3.8-4.8) g/dL
[2017-05-28] MEDS: ROCEPHIN/NS 1 GM/50 ML 1 GM/50 ML BAG IV SCH (11:54)
[2017-05-28] MEDS: FISH OIL PO SCH (11:55)
[2017-05-28] MEDS: BABY ASPIRIN PO SCH (11:55)
[2017-05-28 13:13] VITALS: BP 118/63
== END 2017-05-28 13:27 | DRG 441 ==
LOC: ED 09:06 → 4A 13:07
PROVIDERS: ADMIT Family Medicine; ATTEND Hospitalist
DX: K72.00 Acute and subacute hepatic failure without coma (principal); N17.0 Acute kidney failure with tubular necrosis; E44.0 Moderate protein-calorie malnutrition; I12.9 Hypertensive chronic kidney disease with stage 1 through stage 4 chronic kidney disease, or unspecified chronic kidney disease; E87.6 Hypokalemia; E83.42 Hypomagnesemia; N18.4 Chronic kidney disease, stage 4 (severe); E78.00 Pure hypercholesterolemia, unspecified; Z90.710 Acquired absence of both cervix and uterus; Z98.51 Tubal ligation status; Z79.82 Long term (current) use of aspirin; Z79.899 Other long term (current) drug therapy; Z82.49 Family history of ischemic heart disease and other diseases of the circulatory system; I69.359 Hemiplegia and hemiparesis following cerebral infarction affecting unspecified side
CPT/HCPCS: 36415; 70450; 76705; 76770; 78452; 80048; 80053; 80061; 80074; 80320; 81001; 82043; 82728; 83735; 84100; 84156; 84165; 84300; 84443; 84484; 85025; 85027; 86021; 86038; 87086; 93005; 93010; 93017; 93306; 96360; 96361; 99285; A9502; G0480; G8978-GP; G8979-GP; J0696; J1644; J2785; J3480; J7030; J7042